=== PATIENT | female | born 1950 | race Caucasian/White ===

== ENCOUNTER 2022-11-20 11:45 | Emergency (ER) | payer OTHER ==
--- OUTSIDE RECORDS SUMMARY | 2022-11-20 11:47 | XMS REPORT | Continuity of Care Document ---
:1950 Author Organization [facility] t Address [address] [place] [address] Care Team Providers Name Role Phone JULIA Attending Clinician Unavailable Joao Horn Attending Clinician JULIA Admitting Clinician Unavailable Payers Payer Name Policy Type Policy Number Effective Date Expiration Date [facility] k[facility] [id number] 2019 (MEDICARE 00:00:00 REPLACEMENT/ADVANT AGE - HMO) Problems Condition Condition Condition Status Onset Resolution Last Treating Co mments Source Name Details Category Date Date Treatment Clinician Date Headache Headache Problem Active 2019-12-22 Memoria (finding) (finding) 22:47:49 l Active [place] Problem 12/22/2019 [facility] Hypertensi Hypertens Problem Active 2019-12-22 Memoria ve fito 22:47:49 l disorder, disorder, Herm chantell systemic systemic arterial arterial (disorder) (disorder) Active Problem 12/22/2019 [facility] Memory Memory Problem Active 2019-12-22 Ayaan donna impairment impairment 22:47:49 l (finding) (finding) Herm chantell Active Problem 12/22/2019 [facility] Morbid Morbid Problem Active 2019-12-22 Mem oria obesity obesity 22:47:49 l (disorder) (disorder) He rmann Active Problem 12/22/2019 [facility] Trigeminal Trigemina Problem Active 2019-12-22 Memoria neuralgia l 22:47:49 l (disorder) neuralgia Her guy (disorder) Active Problem 12/22/2019 [facility] Ataxia Ataxia Problem Active 2019-12-22 Ayaan donna (finding) (finding) 22:47:49 l Active [facility] Problem 12/22/2019 [facility] Hyperlipid Problem Active 2019-12-22 M emoria emia Hyperlipid 22:47:49 l (disorder) emia Jamaal n (disorder) Active Problem 12/22/2019 [facility] Myoclonus Myoclonus Problem Active 2019-12-22 Memoria (finding) (finding) 22:47:49 l Active [place] Problem 12/22/2019 [facility] Allergies, Adverse Reactions, Alerts Allergy Allergy Status Severity Reaction(s) Onset Inactive Treating Comm ents Source Name Type Date Date Clinician codeine codeine Active Memoria sulfate sulfate abdullahi Lock Latex Latex Active Memoria l Ashvin Social History Smoking Status Start Date Stop Date Source Social History 2019-09-27 16:03:38 2019-09-27 16:03:38 [facility] Medications Ordered Filled Start Stop Current Ordering Indication Dosage Frequency Signature Comments Components Source Medication Medication Date Date Medication? Clinician (SIG) Name Name Candiceazepi 2017-11 Yes 200 mg = 1 Memoria ne 200 mg 0-26 tab, PO, l oral tablet 15:29: TID, # 270 Mclean 09 tab, 2 Refill(s), Pharmacy: [facility] carBAMazepi 2017-11 Yes 200 mg = 1 Memoria ne 200 mg 0-26 tab, PO, l oral tablet 15:29: TID, # 270 Ashvin 09 tab, 2 Refill(s), Pharmacy: [facility] baclofen 2017-11 Yes 10 mg = 1 M emoria mg oral 0-26 tab, PO, l tablet 15:29: Bedtime, # Leeanne nn 00 90 tab, 3 Refill(s), Pharmacy: [facility] baclofen 2017-11 Yes 10 mg = 1 M emoria mg oral 0-26 tab, PO, l tablet 15:29: Bedtime, # Leeanne nn 00 90 tab, 3 Refill(s), Pharmacy: [facility] Vital Signs Vital Name Observation Time Observation Value Comments Source Systolic (mm Hg) 2019-09-27 16:03:00 Ayaan Lock Diastolic (mm Hg) 2019-09-27 16:03:00 [facility] peterson Lock Heart Rate 2019-09-27 16:03:00 [facility] Respitory Rate 2019-09-27 16:03:00 Adelita Tucker Height 2019-09-27 16:03:00 157.48 cm [facility] Weight 2019-09-27 16:03:00 [facility] BMI Calculated 2019-09-27 16:03:00 Memori al [facility]clean Systolic (mm Hg) 2019-09-12 15:11:00 Ayaan rial [place]clean Diastolic (mm Hg) 2019-09-12 15:11:00 Mem orial [facility] Heart Rate 2019-09-12 15:11:00 [facility] Respitory Rate 2019-09-12 15:11:00 Memori al [place] Height 2019-09-12 15:11:00 157.48 cm [facility] Weight 2019-09-12 15:11:00 [facility] BMI Calculated 2019-09-12 15:11:00 Memori al [place] BMI Calculated 2019-06-14 14:46:00 Memori al [place] Weight 2019-06-14 14:46:00 [facility] Height 2019-06-14 14:46:00 157.48 cm [facility] Respitory Rate 2019-06-14 14:46:00 Memori al [place] Heart Rate 2019-06-14 14:46:00 [facility] Systolic (mm Hg) 2019-06-14 14:46:00 Ayaan rial Ashvin Diastolic (mm Hg) 2019-06-14 14:46:00 Mem orial [place] Systolic (mm Hg) 2019-05-03 19:01:00 Ayaan rial Ash[place] Diastolic (mm Hg) 2019-05-03 19:01:00 Mem orial [place] Weight 2018-11-02 16:43:00 [facility] BMI Calculated 2018-11-02 16:43:00 Memori al [place] Height 2018-11-02 16:43:00 157.48 cm [facility] Heart Rate 2018-11-02 16:43:00 [facility] Systolic (mm Hg) 2018-11-02 16:43:00 Ayaan rial [place]clean Diastolic (mm Hg) 2018-11-02 16:43:00 Mem orial [place] Height 2018-09-21 14:59:00 157.48 cm [facility] Weight 2018-09-21 14:59:00 [facility] BMI Calculated 2018-09-21 14:59:00 Memori al [place] Heart Rate 2018-09-21 14:59:00 [facility] Systolic (mm Hg) 2018-09-21 14:59:00 Ayaan rial Mclean Diastolic (mm Hg) 2018-09-21 14:59:00 Mem orial [place] BMI Calculated 2018-08-30 16:17:00 Memkailash Evansann Weight 2018-08-30 16:17:00 [facility] Height 2018-08-30 16:17:00 157.48 cm [facility] Ashvin Heart Rate 2018-08-30 16:17:00 [facility] Systolic (mm Hg) 2018-08-30 16:17:00 Ayaan seth Mclean Diastolic (mm Hg) 2018-08-30 16:17:00 Mem orial [place] Procedures This patient has no known procedures. Encounters Start End Encounter Admission Attending Care Care Encounter Source Date/Time Date/Time Type Type Clinicians Facility Department ID 2021-09-20 2021-09-20 Outpatient ERICKSON_R [facility] [id number] [place] 08:47:00 08:47:00 [facility] 2019-12-20 2019-12-20 Ambulatory nullFlavo MNA [id number] Memoria 20:30:00 20:30:00 Pre-Reg r Neurology 07 l [place] 2019-12-20 2019-12-20 Ambulatory nullFlavo MNA [id number] Memoria 20:30:00 20:30:00 Pre-Reg r Neurology 07 l [place] Ashvin 2019-12-20 2019-12-20 Outpatient MHIE MHIE [id number] Memoria 14:30:00 14:30:00 07 l [place] 2019-12-20 2019-12-20 Outpatient TRUMAN Horn EDIESCHARGENIS [id number] 14:30:00 14:30:00 Joao Matias 2019-10-31 2019-10-31 Ambulatory nullFlavo MNA [id number] Memoria 17:00:00 17:00:00 Pre-Reg r Neurology 10 l Zenaida Lock 2019-10-31 2019-10-31 Ambulatory nullFlavo MNA [id number] Memoria 17:00:00 17:00:00 Pre-Reg r Neurology 10 l Zenaida Lock 2019-10-31 2019-10-31 Outpatient MHIE MHIE [id number] Memoria 11:00:00 11:00:00 10 abdullahi Lock 2019-10-31 2019-10-31 Outpatient ANA LILIA HornSCHARGENIS MISCHER [id number] 11:00:00 11:00:00 Joao 10 Florencio 2019-09-27 2019-09-28 Outpatient nullFlavo MNA [id number] Memoria 16:45:00 04:59:59 r Neurology 09 abdullahi Lock 2019-09-27 2019-09-28 Outpatient nullFlavo MNA [id number] Memoria 16:45:00 04:59:59 r Neurology 09 abdullahi Lock 2019-09-27 2019-09-27 [facility] [id number] 11:45:00 23:59:59 Joao Lauri Matias 2019-09-27 2019-09-27 Outpatient MHIE MHIE [id number] Memoria 11:45:00 11:45:00 09 abdullahi Lock 2019-09-12 2019-09-13 Outpatient nullFlavo MNA [id number] Memoria 15:00:00 04:59:59 r Neurology 08 abdullahi Lock 2019-09-12 2019-09-13 Outpatient nullFlavo MNA [id number] Memoria 15:00:00 04:59:59 r Neurology 08 abdullahi Lock 2019-09-12 2019-09-12 [facility] [id number] 10:00:00 23:59:59 Joao Javier Matias 2019-09-12 2019-09-12 Outpatient MHIE MHIE [id number] Memoria 10:00:00 10:00:00 Javier Lock 2019-06-14 2019-06-15 Outpatient nullFlavo MNA [id number] Memoria 14:45:00 04:59:59 r Neurology 06 abdullahi Lock 2019-06-14 2019-06-15 Outpatient nullFlavo MNA [id number] Memoria 14:45:00 04:59:59 r Neurology 06 abdullahi Lock 2019-06-14 2019-06-14 Outpatient ANA LILIA HornSCHER MISCHER [id number] 09:45:00 23:59:59 Joaoleo Matias 2019-06-14 2019-06-14 Outpatient MHIE MHIE [id number] Memoria 09:45:00 09:45:00 06 abdullahi Lock 2019-05-03 2019-05-04 Outpatient nullFlavo MNA [id number] Memoria 19:00:00 04:59:59 r Neurology 05 l Zeniada Lock 2019-05-03 2019-05-04 Outpatient nullFlavo MNA [id number] Memoria 19:00:00 04:59:59 r Neurology 05 l Zenaida Lock 2019-05-03 2019-05-03 [id number] 14:00:00 23:59:59 Joao Mikaela Matias 2019-05-03 2019-05-03 Outpatient MHIE MHIE [id number] Memoria 14:00:00 14:00:00 Mikaela Lock 2019-01-04 2019-01-04 Ambulatory nullFlavo MNA [id number] Memoria 20:45:00 20:45:00 Pre-Reg r Neurology 02 l Zenaida Lock 2019-01-04 2019-01-04 Ambulatory nullFlavo MNA [id number] Memoria 20:45:00 20:45:00 Pre-Reg r Neurology 02 l Zenaida Lock 2019-01-04 2019-01-04 Outpatient MHIE IE [id number] Memoria 14:45:00 14:45:00 Jessica Lock 2019-01-04 2019-01-04 [facility] [id number] 14:45:00 14:45:00 Joao Matias 2018-12-04 2018-12-06 Outside nullFlavo MNA [id number] Memoria 20:42:00 05:59:59 Medical r Neurology 00 l Michelle Lock 2018-12-04 2018-12-06 Outside nullFlavo MNA [id number] Memoria 20:42:00 05:59:59 Medical r Neurology 00 l Michelle Lock 2018-12-04 2018-12-05 Outpatient MISCHER MISCHER [id number] 14:42:00 23:59:59 00 2018-11-02 2018-11-03 Outpatient nullFlavo MNA [id number] Memoria 16:30:00 05:59:59 r Neurology 04 l Zenaida Lock 2018-11-02 2018-11-03 Outpatient nullFlavo MNA [id number] Memoria 16:30:00 05:59:59 r Neurology 04 l Zenaida Lock 2018-11-02 2018-11-02 Outpatient Justina MHMISCHER MHMISCHER [id number] 10:30:00 23:59:59 Joao 04 Florencio 2018-11-02 2018-11-02 Outpatient MHIE MHIE [id number] Memoria 10:30:00 10:30:00 04 abdullahi Lock 2018-09-21 2018-09-22 Outpatient nullFlavo MNA [id number] Memoria 15:00:00 04:59:59 r Neurology 03 l Zenaida Lock 2018-09-21 2018-09-22 Outpatient nullFlavo MNA [id number] Memoria 15:00:00 04:59:59 r Neurology 03 l Zenaida Lock 2018-09-21 2018-09-21 Outpatient Justina MHMISCHER MHMISCHER [id number] 10:00:00 23:59:59 Joao 03 Florencio 2018-09-21 2018-09-21 Outpatient MHIE MHIE [id number] Memoria 10:00:00 10:00:00 03 abdullahi Lock 2018-08-30 2018-08-31 Outpatient nullFlavo MNA [id number] Memoria 16:15:00 04:59:59 r Neurology 01 abdullahi Lock 2018-08-30 2018-08-31 Outpatient nullFlavo MNA [id number] Memoria 16:15:00 04:59:59 r Neurology 01 abdullahi Lock 2018-08-30 2018-08-30 Outpatient Justina, MHMISCHER MHMISCHER [id number] 11:15:00 23:59:59 Joao 01 Florencio 2018-08-30 2018-08-30 Outpatient MHIE MHIE [id number] Memoria 11:15:00 11:15:00 01 abdullahi Lock 2018-07-19 2018-07-19 Outpatient MHIE MHIE [id number] Memoria 11:00:00 11:00:00 00 abdullahi Lock 2018-07-19 2018-07-19 Outpatient MHIE MHIE [id number] Memoria 11:00:00 11:00:00 00 abdullahi Lock Results This patient has no known results.
[2022-11-20] MEDS ORDERED: DOXYCYCLINE 100 MG CAP PO ONE (13:06)
[2022-11-20] MEDS ORDERED: TDAP (DIPHTH,PERTUSS(ACELL),TET VAC) 0.5 ML VIAL IMVAC ONE (13:07)
--- NOTE | 2022-11-20 13:13 | EDPHYS ---
Physician Documentation [facility] Name: Andreea Pugh Age: 72 yrs Sex: Female : 1950 Arrival Date: 11/20/2022 Time: 11:46 Bed 6 Private MD: Mike Do ED Physician Geremias Samano HPI: 11/20 13:04 This 72 yrs old Female presents to ER via Ambulatory with complaints of Hand heriberto Swelling. 13:04 This 72 yrs old Female presents to ER via Ambulatory with complaints of Hand heriberto Swelling. 13:04 The patient or guardian reports decreased range of motion, pain, swelling. The heriberto complaints affect the right hand diffusely. Context: The problem was sustained at home, resulted from cat bites. Onset: The symptoms/episode began/occurred 3 day(s) ago. Modifying factors: The symptoms are alleviated by holding still, the symptoms are aggravated by movement. Associated signs and symptoms: The patient has no apparent associated signs or symptoms. Severity of symptoms: At their worst the symptoms were moderate, in the emergency department the symptoms are unchanged. The patient has not experienced similar symptoms in the past. Historical: - Allergies: 12:03 Codeine; aa5 - PMHx: 12:03 Hypertension; aa5 - Immunization history:: Adult Immunizations unknown. - Social history:: Smoking status: Patient denies any tobacco usage or history of. - Family history:: not pertinent. ROS: 13:04 Constitutional: Negative for fever, chills, and weight loss, Eyes: Negative for injury, heriberto pain, redness, and discharge, ENT: Negative for injury, pain, and discharge, Neck: Negative for injury, pain, and swelling, Cardiovascular: Negative for chest pain, palpitations, and edema, Respiratory: Negative for shortness of breath, cough, wheezing, and pleuritic chest pain, Abdomen/GI: Negative for abdominal pain, nausea, vomiting, diarrhea, and constipation, Back: Negative for injury and pain, : Negative for injury, bleeding, discharge, and swelling, Skin: Negative for injury, rash, and discoloration, Neuro: Negative for headache, weakness, numbness, tingling, and seizure, Psych: Negative for depression, anxiety, suicide ideation, homicidal ideation, and hallucinations, Allergy/Immunology: Negative for hives, rash, and allergies, Endocrine: Negative for neck swelling, polydipsia, polyuria, polyphagia, and marked weight changes, Hematologic/Lymphatic: Negative for swollen nodes, abnormal bleeding, and unusual bruising. 13:04 MS/extremity: Positive for decreased range of motion, erythema, pain, swelling, tenderness, of the dorsal aspect of right forearm, right wrist, right hand and palmar aspect of right forearm. Exam: 13:04 Constitutional: This is a well developed, well nourished patient who is awake, alert, heriberto and in no acute distress. Head/Face: Normocephalic, atraumatic. Eyes: Pupils equal round and reactive to light, extra-ocular motions intact. Lids and lashes normal. Conjunctiva and sclera are non-icteric and not injected. Cornea within normal limits. Periorbital areas with no swelling, redness, or edema. ENT: Nares patent. No nasal discharge, no septal abnormalities noted. Tympanic membranes are normal and external auditory canals are clear. Oropharynx with no redness, swelling, or masses, exudates, or evidence of obstruction, uvula midline. Mucous membranes moist. Neck: Trachea midline, no thyromegaly or masses palpated, and no cervical lymphadenopathy. Supple, full range of motion without nuchal rigidity, or vertebral point tenderness. No Meningismus. Chest/axilla: Normal chest wall appearance and motion. Nontender with no deformity. No lesions are appreciated. Cardiovascular: Regular rate and rhythm with a normal S1 and S2. No gallops, murmurs, or rubs. Normal PMI, no JVD. No pulse deficits. Respiratory: Lungs have equal breath sounds bilaterally, clear to auscultation and percussion. No rales, rhonchi or wheezes noted. No increased work of breathing, no retractions or nasal flaring. Abdomen/GI: Soft, non-tender, with normal bowel sounds. No distension or tympany. No guarding or rebound. No evidence of tenderness throughout. Back: No spinal tenderness. No costovertebral tenderness. Full range of motion. Neuro: Awake and alert, GCS 15, oriented to person, place, time, and situation. Cranial nerves II-XII grossly intact. Motor strength 5/5 in all extremities. Sensory grossly intact. Cerebellar exam normal. Normal gait. Psych: Awake, alert, with orientation to person, place and time. Behavior, mood, and affect are within normal limits. 13:04 Skin: cellulitis, that is mild, induration, that is mild is noted, injury, puncture(s), that are deep, of the dorsal aspect of right forearm, right wrist, right hand and palmar aspect of right forearm. Vital Signs: 11:50 BP 141 / 82; Pulse 66; Resp 16 S; Temp 98.3(O); Pulse Ox 99% on R/A; Weight 72.57 kg aa5 (R); Height 5 ft. 3 in. (160.02 cm) (R); 11:50 Body Mass Index 28.34 (72.57 kg, 160.02 cm) aa5 MDM: 12:00 Patient medically screened. heriberto 13:09 Differential diagnosis: contusion, tendonitis. Data reviewed: vital signs, nurses heriberto notes. Data interpreted: school lunch monitor: not applicable for this patient encounter. rate is 66 beats/min, rhythm is regular, Pulse oximetry: on room air is 99 %. Test interpretation: by ED physician or midlevel provider: plain radiologic studies. Counseling: I had a detailed discussion with the patient and/or guardian regarding: the historical points, exam findings, and any diagnostic results supporting the discharge/admit diagnosis, radiology results, the need for outpatient follow up, for definitive care, a general surgeon. 11/20 12:51 Order name: Hand Right 3 View XRAY [facility] 11/20 12:51 Order name: Forearm Right XRAY heriberto Administered Medications: 13:09 Drug: Tetanus Toxoid,Adsorbed 0.5 ml {Funding Analyst: [employer] ([employer] Exp: bp 08/20/2023. Lot #: [id number]. } Route: IM; Site: right deltoid; 14:12 Follow up: Response: No adverse reaction bp 13:10 Drug: Clindamycin 300 mg Route: PO; bp 14:12 Follow up: Response: No adverse reaction bp 13:10 Not Given (MED UNAVAILABLEe): Clindamycin 600 mg IM once bp 13:10 Drug: Doxycycline 200 mg Route: PO; bp 14:12 Follow up: Response: No adverse reaction bp Disposition Summary: 11/20/22 13:12 Discharge Ordered Location: Home heriberto Problem: new heriberto Symptoms: have improved heriberto Condition: Stable heriberto Diagnosis - Bitten by cat heriberto - Cellulitis and acute lymphangitis of other parts of limb - right hand / forearm [facility] Followup: [facility] - With: Mike Do DO - When: 2 - 3 days - Reason: Recheck today's complaints, Continuance of care, Re-evaluation by your physician Followup: heriberto - With: Michael Thompson MD - When: 2 - 3 days - Reason: Recheck today's complaints, Re-evaluation by your physician Discharge Instructions: - Discharge Summary Sheet heriberto - Animal Bite, Adult, [id number] [facility] - Animal Bite, Adult heriberto - Cellulitis, Adult heriberto - Cellulitis, Adult, [id number] [facility] Forms: - Medication Reconciliation Form [facility] - Thank You Letter [facility] - Antibiotic Education [facility] - Prescription Opioid Use [facility] Prescriptions: - Clindamycin HCl 300 mg Oral Capsule - take 1 capsule by ORAL route every 6 hours for 10 days; 40 capsule; Refills: 0, [facility] Product Selection Permitted - Doxycycline Hyclate 100 mg Oral Tablet - take 1 tablet by ORAL route every 12 hours; 20 tablet; Refills: 0, Product [facility] Selection Permitted - Tramadol 50 mg Oral Tablet - take 2 tablet by ORAL route every 8 hours as needed; 24 tablet; Refills: 0, [facility] Product Selection Permitted Signatures: Dispatcher [employer] Geremias Bryant MD MD cha Calderon, Audri, RN RN aa5 Rios Toth RN RN bp
--- NOTE | 2022-11-20 13:13 | ER ---
Nurse's Notes [facility] Name: Andreea Pugh Age: 72 yrs Sex: Female : 1950 Arrival Date: 11/20/2022 Time: 11:46 Bed 6 Private MD: Mike Do Diagnosis: Bitten by cat;Cellulitis and acute lymphangitis of other parts of limb-right hand / forearm Presentation: 11/20 11:50 Chief complaint: Patient states: cat bite 2-3 days ago, now has right hand swelling and aa5 redness. 11:50 Coronavirus screen: At this time, the client does not indicate any symptoms associated aa5 with coronavirus-19. Ebola Screen: Patient denies travel to an Ebola-affected area in the 21 days before illness onset. Initial Sepsis Screen: Does the patient meet any 2 criteria? No. Patient's initial sepsis screen is negative. Does the patient have a suspected source of infection? Yes:. Risk Assessment: Do you want to hurt yourself or someone else? Patient reports no desire to harm self or others. Onset of symptoms was October 2022. 11:50 Method Of Arrival: Ambulatory aa5 11:50 Acuity: RAGHU 3 aa5 Triage Assessment: 12:00 General: Appears in no apparent distress. comfortable, Behavior is calm, cooperative, bp appropriate for age. Pain: Complains of pain in right hand. EENT: No deficits noted. Neuro: No deficits noted. Cardiovascular: No deficits noted. Respiratory: No deficits noted. GI: No signs and/or symptoms were reported involving the gastrointestinal system. : No signs and/or symptoms were reported regarding the genitourinary system. Derm: No deficits noted. Musculoskeletal: Swelling present in right hand. Historical: - Allergies: 12:03 Codeine; aa5 - PMHx: 12:03 Hypertension; aa5 - Immunization history:: Adult Immunizations unknown. - Social history:: Smoking status: Patient denies any tobacco usage or history of. - Family history:: not pertinent. Screenin:12 [facility] ED Fall Risk Assessment (Adult) History of falling in the last 3 months, bp including since admission No falls in past 3 months (0 pts). Abuse screen: Denies threats or abuse. Denies injuries from another. Nutritional screening: No deficits noted. Tuberculosis screening: No symptoms or risk factors identified. Assessment: 12:10 Reassessment: Cat bite reported to [facility] Department . aa5 14:12 Reassessment: PT DC HOME AMBULATORY. bp Vital Signs: 11:50 BP 141 / 82; Pulse 66; Resp 16 S; Temp 98.3(O); Pulse Ox 99% on R/A; Weight 72.57 kg aa5 (R); Height 5 ft. 3 in. (160.02 cm) (R); 11:50 Body Mass Index 28.34 (72.57 kg, 160.02 cm) aa5 ED Course: 11:46 Patient arrived in ED. as 11:47 Mike Do DO is Private Physician. as 11:50 Arm band placed on Patient placed in an exam room, on a stretcher. aa5 12:00 Geremias Samano MD is Attending Physician. heriberto 12:00 Rios Toth, JANETH is Primary Nurse. bp 12:03 Triage completed. aa5 13:10 Mike Do DO is Referral Physician. heriberto 13:10 Michael Thompson MD is Referral Physician. heriberto 13:38 Hand Right 3 View XRAY In Process Unspecified. EDMS 13:38 Forearm Right XRAY In Process Unspecified. EDMS 14:12 Patient has correct armband on for positive identification. Bed in low position. Call bp light in reach. Side rails up X2. Adult w/ patient. 14:12 No provider procedures requiring assistance completed. Patient did not have IV access bp during this emergency room visit. Administered Medications: 13:09 Drug: Tetanus Toxoid,Adsorbed 0.5 ml {Dynamometer Tester Engine: [employer] ([employer]). Exp: bp 08/20/2023. Lot #: [id number]. } Route: IM; Site: right deltoid; 14:12 Follow up: Response: No adverse reaction bp 13:10 Drug: Clindamycin 300 mg Route: PO; bp 14:12 Follow up: Response: No adverse reaction bp 13:10 Not Given (MED UNAVAILABLEe): Clindamycin 600 mg IM once bp 13:10 Drug: Doxycycline 200 mg Route: PO; bp 14:12 Follow up: Response: No adverse reaction bp Medication: 14:12 VIS not applicable for this client. bp Outcome: 13:12 Discharge ordered by . heriberto 14:12 Discharged to home ambulatory. bp 14:12 Condition: stable 14:12 Discharge instructions given to patient, Instructed on discharge instructions, follow up and referral plans. medication usage, Demonstrated understanding of instructions, follow-up care, medications, Prescriptions given X 3. 14:14 Patient left the ED. bp Signatures: Dispatcher [employer] EDMS Geremias Samano MD MD cha Martinez, Amelia as Calderon, Audri, RN RN aa5 Rios Toth RN RN bp Corrections: (The following items were deleted from the chart) 14:14 14:12 Discharge instructions given to patient, Instructed on discharge instructions, bp follow up and referral plans. medication usage, Demonstrated understanding of instructions, follow-up care, medications, Prescriptions given X 1, bp
--- NOTE | 2022-11-20 13:46 | RAD REPORT ---
EXAM DESCRIPTION: RAD - Forearm Right - 11/20/2022 1:36 pm CLINICAL HISTORY: PAIN COMPARISON: Forearm Right dated 03/27/2019 FINDINGS: Moderate soft tissue swelling along the dorsum of the hand and wrist. No fracture, foreign body or subcutaneous gas.
--- NOTE | 2022-11-20 13:47 | RAD REPORT ---
EXAM DESCRIPTION: RAD - Hand Right 3 View - 11/20/2022 1:36 pm CLINICAL HISTORY: PAIN COMPARISON: No comparisons FINDINGS: Moderate soft tissue swelling is seen along the dorsum of the hand and wrist. No radiopaqu e foreign body or soft tissue gas seen.
[2022-11-20 14:18] VITALS: BP 141/82; TEMP 98.3; O2SAT 99
== END 2022-11-20 14:14 | disposition home or self-care (01) ==
LOC: ER 11:45
DX: L03.113 Cellulitis of right upper limb (principal); L03.123 Acute lymphangitis of right upper limb; W55.01XA Bitten by cat, initial encounter; I10 Essential (primary) hypertension; Z88.5 Allergy status to narcotic agent; Z23 Encounter for immunization
CPT/HCPCS: 90471; 99283

== ENCOUNTER 2023-07-17 11:13 | Emergency (ER) | payer OTHER ==
--- OUTSIDE RECORDS SUMMARY | 2023-07-17 11:17 | XMS REPORT | Continuity of Care Document ---
:1950 Author Organization [facility] t Address [address] [place] [address] [place] [id number] Care Team Providers Name Role Phone TIFFANY EVERETT Attending Clinician Unavailable LAI GARCIA Attending Clinician Unavailable Joao Horn Attending Clinician JULIA Attending Clinician Unavailable JULIA Admitting Clinician Unavailable Payers Payer Name Policy Type Policy Number Effective Date Expiration Date S doyle [employer] 16 [id number] 2023 HMO-POS 00:00:00 [facility] [id number] 2019 (MEDICARE 00:00:00 REPLACEMENT/ADVANT AGE - HMO) Problems Condition Condition Condition Status Onset Resolution Last Treating Co mments Source Name Details Category Date Date Treatment Clinician Date Hypertensi Hypertensi Disease Active Kai kitchen on on 06-28 Seybold 00:00: - 00 Externa l Alzheimer Alzheimer Disease Active Overview: Deya disease disease 06-28 Formattin Seybo ld 00:00: g of this note Externa might be l different from the original. Care Everywher e Records, see Dr. Horn Hiatal Hiatal Disease Active Deya hernia hernia 06-28 Seybold with GERD with GERD 00:00: - 00 Externa l Hyperlipid Hyperlipid Disease Active Kai kitchen emia emia 06-28 Seybold 00:00: - 00 Externa l Headache Headache Problem Active 2023-05-12 Memoria (finding) (finding) 02:16:57 l Active [place] Problem 05/12/2023 [facility] Neuro,Ayaan rial [facility] Memory Memory Problem Active 2023-05-12 Ayaan donna impairment impairment 02:16:57 l (finding) (finding) Herm chantell Active Problem 05/12/2023 [facility] Morbid Morbid Problem Active 2023-05-12 Ayaan [facility] obesity obesity 02:16:57 l (disorder) (disorder) Bari dnageloann Active Problem 05/12/2023 [facility] Trigeminal Trigemina Problem Active 2023-05-12 Memoria neuralgia l 02:16:57 l (disorder) neuralgia Her guy (disorder) Active Problem 05/12/2023 [facility] Ataxia Ataxia Problem Active 2023-05-12 Mem oria (finding) (finding) 02:16:57 l Active [place] Problem 05/12/2023 [facility] Myoclonus Myoclonus Problem Active 2023-05-12 Memoria (finding) (finding) 02:16:57 l Active [place] Problem 05/12/2023 [facility] Impaired Impaired Problem Active 2023-05-12 Memoria cognition cognition 02:16:57 l (finding) (finding) Herm chantell Active Problem 05/12/2023 [facility] [place] Allergies, Adverse Reactions, Alerts Allergy Allergy Status Severity Reaction(s) Onset Inactive Treating Comm ents Source Name Type Date Date Clinician Penicill Propensi Active Rash Deya ins ty to 3-30 Seybold adverse 00:00: - reaction 00 Externa s l Codeine Propensi Active Other Other Deya ty to 807 reaction( Seybold adverse 00:00: s): - reaction 00 Unknown - Exter na s See l comments Latex Propensi Active Rash Deya ty to 807 Seybold adverse 00:00: - reaction 00 Externa s l codeine codeine Active Memoria sulfate sulfate l [place] Latex Latex Active Memoria l [place] penicill penicill Active Memori a in in l [place] Social History Social Habit Start Date Stop Date Quantity Comments Source Gender identity Deya rey - External Sexual orientation Deya Driver - External History of tobacco Cigarette Smoker Deya Driver use - External Cigarettes smoked 2023-06-28 2023-06-28 Deya Driver current (pack per 00:00:00 00:00:00 - Exter nal day) - Reported Cigarette 2023-06-28 2023-06-28 Deya Driver pack-years 00:00:00 00:00:00 - External Tobacco use and 2023-06-28 2023-06-28 Smokeless tobacco Jaspal divinelisa Neisha exposure 00:00:00 00:00:00 non-user - External Alcohol intake 2023-06-28 2023-06-28 Ex-drinker Deyaveda Mccollum wily 00:00:00 00:00:00 (finding) - External Education 2023-06-28 2023-06-28 16 Deya Seshayosvaldo 00:00:00 00:00:00 - External Alcohol Comment 2023-06-28 2023-06-28 quit heavy Deyaveda rey 00:00:00 00:00:00 alcohol in 1982 - Externa l History of Social 2023-06-27 2023-06-27 Deyaveda Driver function 00:00:00 00:00:00 - External Sex [birth year] At [birth year] Deya rey 00:00:00 00:00:00 - External Smoking Status Start Date Stop Date Source Tobacco smoking status 2023-05-09 20:11:48 2023-05-09 20:11:48 M minoo Lock Medications Ordered Filled Start Stop Current Ordering Indication Dosage Frequency Signature Comments Components Source Medication Medication Date Date Medication? Clinician (SIG) Name Name diphenhydrA 2022- No Take by Jaspal ku MINE HCl 06-28 mouth Seybold (BENADRYL 11:41: 00:00 - ALLERGY OR) 13 :00 Externa l Omeprazole 2022- No 40mg Take 1 Tierra ey 40 MG oral 06-28 capsule Seybo ld Delayed 11:40: 00:00 (40 mg - Release 50 :00 total) by Externa Capsule mouth 2 l times daily Pantoprazol 2022- No 20mg Take 1 Didier mccollum e Sodium 20 06-28 tablet (20 S eybold MG oral 11:40: 00:00 mg total) - Tablet 44 :00 by mouth Externa Delayed daily l Response Benzonatate 3-0 Yes [id number] 100mg [id number] Take 1 Deya (Tessalon 06-28 [id number] capsule S madhu Reveles) 100 00:00: 3D (100 mg - MG oral 00 total) by Externa Capsule mouth 3 l times daily as needed for cough Azithromyci 3-0 2023- Yes [id number] Take 2 Deya n 250 MG 06-28- tablets by Seyb old oral Tablet 00:00: 04:59 mouth on - 00 :00 day 1 then Externa 1 tablet l by mouth daily for 4 days thereafter . Atorvastati 2022-0 Yes 20mg Take 1 Tierra ey n Calcium - tablet (20 Seyb old 20 MG oral 14:12: mg total) - Tablet 15 by mouth Externa daily l donepezil 3-0 Yes 10 mg = 1 Mem oria 10 mg oral 6-13 tab, PO, l tablet 20:37: Bedtime, # Leeanne nn 00 30 tab, 3 Refill(s), Pharmacy: [facility], 154.94, cm, 05/09/23 15:21:00 CDT, Height, 81.818, kg, 05/09/23 15:21:00 CDT, Weight donepezil 2022-0 Yes 10 mg = 1 Mem oria 10 mg oral 6-13 tab, PO, l tablet 20:37: Bedtime, # Leeanne nn 00 30 tab, 3 Refill(s), Pharmacy: [facility], 154.94, cm, 05/09/23 15:21:00 CDT, Height, 81.818, kg, 05/09/23 15:21:00 CDT, Weight donepezil 3-0 Yes 10 mg = 1 Mem oria 10 mg oral 6-13 tab, PO, l tablet 20:37: Bedtime, # Leaenne nn 00 30 tab, 3 Refill(s), Pharmacy: [facility], 154.94, cm, 05/09/23 15:21:00 CDT, Height, 81.818, kg, 05/09/23 15:21:00 CDT, Weight donepezil 2022-0 Yes 10 mg = 1 Mem oria 10 mg oral 6-13 tab, PO, l tablet 20:37: Bedtime, # Leeanne nn 00 30 tab, 3 Refill(s), Pharmacy: [facility], 154.94, cm, 05/09/23 15:21:00 CDT, Height, 81.818, kg, 05/09/23 15:21:00 CDT, Weight donepezil 3-0 Yes 10 mg = 1 Mem oria 10 mg oral 6-13 tab, PO, l tablet 20:37: Bedtime, # Leeanne nn 00 30 tab, 3 Refill(s), Pharmacy: [facility], 154.94, cm, 05/09/23 15:21:00 CDT, Height, 81.818, kg, 05/09/23 15:21:00 CDT, Weight DONEPEZIL 2022-0 Yes 10mg Take 1 Deya HYDROCHLORI 6-13 tablet (10 Se ybold DE 10 MG 00:00: mg total) - oral Tablet 00 by mouth Exte rna every l night at bedtime Aricept 5 2022-0 Yes 5 mg = 1 Ayaan donna mg oral 4-13 tab, PO, l tablet 20:50: Bedtime, # Leeanne nn 00 30 tab, 3 Refill(s), Pharmacy: [facility], 154.94, cm, 03/09/23 15:13:00 CDT, Height, 80.909, kg, 03/09/23 15:13:00 CDT, Weight Aricept 5 2022-0 Yes 5 mg = 1 Ayaan donna mg oral 4-13 tab, PO, l tablet 20:50: Bedtime, # Leeanne nn 00 30 tab, 3 Refill(s), Pharmacy: [facility], 154.94, cm, 03/09/23 15:13:00 CDT, Height, 80.909, kg, 03/09/23 15:13:00 CDT, Weight Aricept 5 2022-0 Yes 5 mg = 1 Ayaan donna mg oral 4-13 tab, PO, l tablet 20:50: Bedtime, # Leeanne nn 00 30 tab, 3 Refill(s), Pharmacy: [facility], 154.94, cm, 03/09/23 15:13:00 CDT, Height, 80.909, kg, 03/09/23 15:13:00 CDT, Weight Aricept 5 2022-0 Yes 5 mg = 1 Ayaan donna mg oral 4-13 tab, PO, l tablet 20:50: Bedtime, # Leeanne nn 00 30 tab, 3 Refill(s), Pharmacy: [facility], 154.94, cm, 03/09/23 15:13:00 CDT, Height, 80.909, kg, 03/09/23 15:13:00 CDT, Weight Aricept 5 2022-0 Yes 5 mg = 1 Ayaan donna mg oral 4-13 tab, PO, l tablet 20:50: Bedtime, # Leeanne nn 00 30 tab, 3 Refill(s), Pharmacy: [facility], 154.94, cm, 03/09/23 15:13:00 CDT, Height, 80.909, kg, 03/09/23 15:13:00 CDT, Weight atorvastati 0 Yes 20 mg = 1 M emoria n 20 mg 3-07 tab, PO, l oral tablet 21:59: Bedtime, # [place] 00 90 tab, 1 Refill(s) DULoxetine 2022-0 Yes 0 Memoria 60 mg oral 3-07 Refill(s) l delayed 21:59: [place] release 00 capsule amLODIPine 2022-0 Yes 10 mg = 1 Me moria 10 mg oral 3-07 tab, PO, l tablet 21:59: Daily, # [place] 00 30 tab, 0 Refill(s) atorvastati 2022-0 Yes 20 mg = 1 M emoria n 20 mg 3-07 tab, PO, l oral tablet 21:59: Bedtime, # [place] 00 90 tab, 1 Refill(s) DULoxetine 2022-0 Yes 0 Memoria 60 mg oral 3-07 Refill(s) l delayed 21:59: [place] release 00 capsule amLODIPine 2022-0 Yes 10 mg = 1 Me moria 10 mg oral 3-07 tab, PO, l tablet 21:59: Daily, # [place] 00 30 tab, 0 Refill(s) atorvastati 2022-0 Yes 20 mg = 1 M emoria n 20 mg 3-07 tab, PO, l oral tablet 21:59: Bedtime, # [place] 00 90 tab, 1 Refill(s) DULoxetine 3-0 Yes 0 Memoria 60 mg oral 3-07 Refill(s) l delayed 21:59: [place] release 00 capsule amLODIPine 3-0 Yes 10 mg = 1 Me moria 10 mg oral 3-07 tab, PO, l tablet 21:59: Daily, # [place] 00 30 tab, 0 Refill(s) atorvastati 3-0 Yes 20 mg = 1 M emoria n 20 mg 3-07 tab, PO, l oral tablet 21:59: Bedtime, # [place] 00 90 tab, 1 Refill(s) DULoxetine 3-0 Yes 0 Memoria 60 mg oral 3-07 Refill(s) l delayed 21:59: [place] release 00 capsule amLODIPine 3-0 Yes 10 mg = 1 Me moria 10 mg oral 3-07 tab, PO, l tablet 21:59: Daily, # [place] 00 30 tab, 0 Refill(s) atorvastati 3-0 Yes 20 mg = 1 M emoria n 20 mg 3-07 tab, PO, l oral tablet 21:59: Bedtime, # [place] 00 90 tab, 1 Refill(s) DULoxetine 3-0 Yes 0 Memoria 60 mg oral 3-07 Refill(s) l delayed 21:59: [place] release 00 capsule amLODIPine 3-0 Yes 10 mg = 1 Me moria 10 mg oral 3-07 tab, PO, l tablet 21:59: Daily, # [place] 00 30 tab, 0 Refill(s) atorvastati 2023-0 Yes 20 mg = 1 M emoria n 20 mg 3-07 tab, PO, l oral tablet 21:59: Bedtime, # [place] 00 90 tab, 1 Refill(s) DULoxetine 3-0 Yes 0 Memoria 60 mg oral 3-07 Refill(s) l delayed 21:59: [place] release 00 capsule amLODIPine 2023-0 Yes 10 mg = 1 Me moria 10 mg oral 3-07 tab, PO, l tablet 21:59: Daily, # [place] 00 30 tab, 0 Refill(s) omeprazole 2023-0 Yes 40 mg = 1 Me moria 40 mg oral 3-07 cap, 0 l delayed 21:58: Refill(s) Leeanne nn release 00 capsule omeprazole 2022-0 Yes 40 mg = 1 Me moria 40 mg oral 3-07 cap, 0 l delayed 21:58: Refill(s) Leeanne nn release 00 capsule omeprazole 2022-0 Yes 40 mg = 1 Me moria 40 mg oral 3-07 cap, 0 l delayed 21:58: Refill(s) Leeanne nn release 00 capsule omeprazole 2022-0 Yes 40 mg = 1 Me moria 40 mg oral 3-07 cap, 0 l delayed 21:58: Refill(s) Leeanne nn release 00 capsule omeprazole 2022-0 Yes 40 mg = 1 Me moria 40 mg oral 3-07 cap, 0 l delayed 21:58: Refill(s) Leeanne nn release 00 capsule omeprazole 2022-0 Yes 40 mg = 1 Me moria 40 mg oral 3-07 cap, 0 l delayed 21:58: Refill(s) Leeanne nn release 00 capsule Amlodipine Yes 10mg Take 1 Kelse y Besylate 10 01-31 tablet (10 Se ybold MG oral 00:00: mg total) - Tablet 00 by mouth Externa daily l Duloxetine 2022- No 62mg Take 62 mg Deya HCl 60 MG 01-31 by mouth Seybo ld oral Cap DR 00:00: 00:00 daily - Particles 00 :00 Externa l Famotidine 2021-11- No 40mg Take 1 Tierra ey 40 MG oral 01-09 tablet (40 Se ybold Tablet 00:00: 00:00 mg total) - 00 :00 by mouth Externa nightly l carBAMazepi 2017-11 Yes 200 mg = 1 Memoria ne 200 mg 0-26 tab, PO, l oral tablet 15:29: TID, # 270 [place] 09 tab, 2 Refill(s), Pharmacy: [facility] carBAMazepi 2017-11 Yes 200 mg = 1 Memoria ne 200 mg 0-26 tab, PO, l oral tablet 15:29: TID, # 270 [place] 09 tab, 2 Refill(s), Pharmacy: [facility] carBAMazepi 2017-11 Yes 200 mg = 1 Memoria ne 200 mg 0-26 tab, PO, l oral tablet 15:29: TID, # 270 [place] 09 tab, 2 Refill(s), Pharmacy: [facility] 2017-11 Yes 200 mg = 1 Memoria ne 200 mg 0-26 tab, PO, l oral tablet 15:29: TID, # 270 [place] 09 tab, 2 Refill(s), Pharmacy: [facility] 2017-11 Yes 200 mg = 1 Memoria ne 200 mg 0-26 tab, PO, l oral tablet 15:29: TID, # 270 [place] 09 tab, 2 Refill(s), [facility] Yes 200 mg = 1 Memoria ne 200 mg 0-26 tab, PO, l oral tablet 15:29: TID, # 270 [place] 09 tab, 2 Refill(s), Pharmacy: [facility] 2017-11 Yes 200 mg = 1 Memoria ne 200 mg 0-26 tab, PO, l oral tablet 15:29: TID, # 270 [place] 09 tab, 2 Refill(s), Pharmacy: [facility] 2017-11 Yes 200 mg = 1 Memoria ne 200 mg 0-26 tab, PO, l oral tablet 15:29: TID, # 270 [place] 09 tab, 2 Refill(s), Pharmacy: [facility] baclofen 2017-11 Yes 10 mg = 1 M emoria mg oral 0-26 tab, PO, l tablet 15:29: Bedtime, # Leeanne nn 00 90 tab, 3 Refill(s), Pharmacy: [facility] baclofen 2017-11 Yes 10 mg = 1 M emoria mg oral 0-26 tab, PO, l tablet 15:29: Bedtime, # Leeanne nn 00 90 tab, 3 Refill(s), Pharmacy: [facility] baclofen 2017-11 Yes 10 mg = 1 M emoria mg oral 0-26 tab, PO, l tablet 15:29: Bedtime, # Leeanne nn 00 90 tab, 3 Refill(s), Pharmacy: [facility] baclofen 2017-11 Yes 10 mg = 1 M emoria mg oral 0-26 tab, PO, l tablet 15:29: Bedtime, # Leeanne nn 00 90 tab, 3 Refill(s), Pharmacy: [facility] baclofen 2017-11 Yes 10 mg = 1 M emoria mg oral 0-26 tab, PO, l tablet 15:29: Bedtime, # Leeanne nn 00 90 tab, 3 Refill(s), Pharmacy: [facility] baclofen 2017-11 Yes 10 mg = 1 M emoria mg oral 0-26 tab, PO, l tablet 15:29: Bedtime, # Leeanne nn 00 90 tab, 3 Refill(s), Pharmacy: [facility] baclofen 2017-11 Yes 10 mg = 1 M emoria mg oral 0-26 tab, PO, l tablet 15:29: Bedtime, # Leeanne nn 00 90 tab, 3 Refill(s), Pharmacy: [facility] baclofen 2017-11 Yes 10 mg = 1 M emoria mg oral 0-26 tab, PO, l tablet 15:29: Bedtime, # Leeanne nn 00 90 tab, 3 Refill(s), Pharmacy: [facility] Vital Signs Vital Name Observation Time Observation Value Comments Source Systolic blood 2023-06-28 16:28:00 133 mm[Hg] Deya Lesterold - pressure External Diastolic blood 2023-06-28 16:28:00 80 mm[Hg] Zaid Driver - pressure External Heart rate 2023-06-28 16:28:00 55 /min Deya leung - External Body temperature 2023-06-28 16:28:00 36.33 Yahaira Tierra gonzalez Seybold - External Respiratory rate 2023-06-28 16:28:00 15 /min Tierra gonzalez Seybold - External Body height 2023-06-28 16:28:00 157.5 cm Deya leung - External Body weight 2023-06-28 16:28:00 82.101 kg Deya leung - External BMI 2023-06-28 16:28:00 33.11 kg/m2 Deya leung - External Oxygen saturation in 2023-06-28 16:28:00 97 /min Deya Driver - Arterial blood by External Pulse oximetry Diastolic (mm Hg) 2023-03-09 19:56:00 Mem orial [place] Heart Rate 2023-03-09 19:56:00 [facility] [place] Height 2023-03-09 19:56:00 5 [ft_i] [facility] [place] Weight 2023-03-09 19:56:00 [facility] [place] BMI Calculated 2023-03-09 19:56:00 Memori al [place] Systolic (mm Hg) 2023-03-09 19:56:00 Ayaan rial [place] Systolic (mm Hg) 2023-01-31 21:15:00 Ayaan rial [place] Diastolic (mm Hg) 2023-01-31 21:15:00 Mem orial [place] Heart Rate 2023-01-31 21:15:00 [facility] [place] Height 2023-01-31 21:15:00 5 [ft_i] [facility] [place] Weight 2023-01-31 21:15:00 [facility] [place] BMI Calculated 2023-01-31 21:15:00 Memori al [place] Systolic (mm Hg) 2019-09-27 16:03:00 Ayaan rial [place] Diastolic (mm Hg) 2019-09-27 16:03:00 Mem orial [place] Heart Rate 2019-09-27 16:03:00 [facility] [place] Respitory Rate 2019-09-27 16:03:00 Memori al [place] Height 2019-09-27 16:03:00 157.48 cm [facility] [place] Weight 2019-09-27 16:03:00 [facility] [place] BMI Calculated 2019-09-27 16:03:00 Memori al [place] Systolic (mm Hg) 2019-09-12 15:11:00 Ayaan rial [place] Diastolic (mm Hg) 2019-09-12 15:11:00 Mem orial [place] Heart Rate 2019-09-12 15:11:00 [facility] [place] Respitory Rate 2019-09-12 15:11:00 Memori al [place] Height 2019-09-12 15:11:00 157.48 cm [facility] [place] Weight 2019-09-12 15:11:00 [facility] [place] BMI Calculated 2019-09-12 15:11:00 Memori al [place] BMI Calculated 2019-06-14 14:46:00 Memori al [place] Weight 2019-06-14 14:46:00 [facility] [place] Height 2019-06-14 14:46:00 157.48 cm [facility] [place] Respitory Rate 2019-06-14 14:46:00 Memori al [place] Heart Rate 2019-06-14 14:46:00 [facility] [place] Systolic (mm Hg) 2019-06-14 14:46:00 Ayaan rial [place] Diastolic (mm Hg) 2019-06-14 14:46:00 Mem orial [place] Systolic (mm Hg) 2019-05-03 19:01:00 Ayaan rial [place] Diastolic (mm Hg) 2019-05-03 19:01:00 Mem orial [place] Weight 2018-11-02 16:43:00 [facility] [place] BMI Calculated 2018-11-02 16:43:00 Memori al [place] Height 2018-11-02 16:43:00 157.48 cm [facility] [place] Heart Rate 2018-11-02 16:43:00 [facility] [place] Systolic (mm Hg) 2018-11-02 16:43:00 Ayaan rial [place] Diastolic (mm Hg) 2018-11-02 16:43:00 Mem orial [place] Height 2018-09-21 14:59:00 157.48 cm [facility] [place] Weight 2018-09-21 14:59:00 [facility] [place] BMI Calculated 2018-09-21 14:59:00 Memori al [place] Heart Rate 2018-09-21 14:59:00 [facility] [place] Systolic (mm Hg) 2018-09-21 14:59:00 Ayaan rial [place] Diastolic (mm Hg) 2018-09-21 14:59:00 Mem orial [place] BMI Calculated 2018-08-30 16:17:00 Memori al [place] Weight 2018-08-30 16:17:00 [facility] [place] Height 2018-08-30 16:17:00 157.48 cm [facility] [place] Heart Rate 2018-08-30 16:17:00 [facility] [place] Systolic (mm Hg) 2018-08-30 16:17:00 Ayaan rial [place] Diastolic (mm Hg) 2018-08-30 16:17:00 Mem orial [place] Procedures Procedure Date / Time Performed Performing Clinician [facility] e Bowel care<sup>1</sup> [facility] [place] Encounters Start End Encounter Admission Attending Care Care Encounter Source Date/Time Date/Time Type Type Clinicians Facility Department ID 2023-08-11 2023-08-[address] [id number] Memoria 13:45:00 13:45:00 15 l [place] 2023-08-11 2023-08-11 Outpatient MHIE MHIE [id number] Memoria 13:45:00 13:45:00 15 abdullahi Lock 2023-07-19 2023-07-19 Outpatient PREDEYA HIGGINBOTHAM [id number] Deya 14:45:00 14:45:00 TIFFANY Seybol d 2023-07-12 2023-07-12 Outpatient GARCIA, DEYA KARIMI [id number] Deya 00:00:00 00:00:00 LASUNDRA Seybo ld 2023-07-04 2023-07-04 Outpatient PREZAS, DEYA KARIMI [id number] Deya 00:00:00 00:00:00 TIFFANY Seybol d 2023-07-03 2023-07-03 Outpatient PREZAS, DEYA KARIMI [id number] Deya 00:00:00 00:00:00 TIFFANY Seybol d 2023-06-28 2023-06-28 Outpatient PREZASDEYA [id number] Deya 11:45:00 11:45:00 TIFFANY Seybol d 2023-06-13 2023-06-13 Outpatient PREZASDEYA [id number] Deya 10:45:00 10:45:00 TIFFANY Seybol d 2023-05-09 2023-05-09 Ambulatory MHIE MNA [id number] Memoria 19:30:00 19:30:00 Pre-Reg Neurology 13 l [place] Lock 2023-05-09 2023-05-09 Ambulatory MHIE MNA [id number] Memoria 19:30:00 19:30:00 Pre-Reg Neurology 13 l [place]vin 2023-05-09 2023-05-09 Outpatient MHIE MHIE [id number] Memoria 14:45:00 14:45:00 14 l [place] 2023-05-09 2023-05-09 Outpatient MHIE MHIE [id number] Memoria 14:45:00 14:45:00 14 l [place] 2023-05-09 2023-05-09 Outpatient MHIE MHIE [id number] Memoria 14:30:00 14:30:00 13 l [place] 2023-05-09 2023-05-09 Outpatient Justina MHMISCHER MHMISCHER [id number] 14:30:00 14:30:00 Joao 13 Florencio 2023-03-09 2023-03-10 Outpatient MHIE MNA [id number] Memoria 20:00:00 04:59:59 Neurology 12 l Zenaida Lock 2023-03-09 2023-03-10 Outpatient MHIE MNA [id number] Memoria 20:00:00 04:59:59 Neurology 12 l Zenaida Lock 2023-03-09 2023-03-09 Outpatient Justina, MHMISCHER MHMISCHER [id number] 15:00:00 23:59:59 Joao 12 Florencio 2023-03-09 2023-03-09 Outpatient MHIE MHIE [id number] Memoria 15:00:00 15:00:00 12 abdullahi Lock 2023-01-31 2023-02-01 Outpatient MHIE MNA [id number] Memoria 21:00:00 05:59:59 Neurology 11 l Zenaida Lock 2023-01-31 2023-02-01 Outpatient MHIE MNA [id number] Memoria 21:00:00 05:59:59 Neurology 11 l Zenaida Lock 2023-01-31 2023-01-31 Outpatient Justina, MHMISCHER MHMISCHER [id number] 15:00:00 23:59:59 Joao 11 Florencio 2023-01-31 2023-01-31 Outpatient MHIE MHIE [id number] Memoria 15:00:00 15:00:00 11 abdullahi Lock 2021-09-20 2021-09-20 Outpatient ERICKSON_R [facility] [id number] - [place] 08:47:00 08:47:00 [facility] 2019-12-20 2019-12-20 Ambulatory nullFlavo MNA [id number] Memoria 20:30:00 20:30:00 Pre-Reg r Neurology 07 l Zenaida Johnsonann 2019-12-20 2019-12-20 Ambulatory nullFlavo MNA [id number] Memoria 20:30:00 20:30:00 Pre-Reg r Neurology 07 l [place]vin 2019-12-20 2019-12-20 Outpatient MHIE MHIE [id number] Memoria 14:30:00 14:30:00 Henrietta Lock 2019-12-20 2019-12-20 [id number] 14:30:00 14:30:00 Joao Matias 2019-10-31 2019-10-31 Ambulatory nullFlavo MNA [id number] Memoria 17:00:00 17:00:00 Pre-Reg r Neurology 10 abdullahi Lock 2019-10-31 2019-10-31 Ambulatory nullFlavo MNA [id number] Memoria 17:00:00 17:00:00 Pre-Reg r Neurology 10 abdullahi Estevez [place] 2019-10-31 2019-10-31 Outpatient MHIE MHIE [id number] Memoria 11:00:00 11:00:00 Jazmyne Lock 2019-10-31 2019-10-31 [id number] 11:00:00 11:00:00 Joaoleo Matias 2019-09-27 2019-09-28 Outpatient nullFlavo MNA [id number] Memoria 16:45:00 04:59:59 r Neurology 09 abdullahi Lock 2019-09-27 2019-09-28 Outpatient nullFlavo MNA [id number] Memoria 16:45:00 04:59:59 r Neurology 09 abdullahi Estevez [place] 2019-09-27 2019-09-27 [id number] 11:45:00 23:59:59 Joao Lauri Matias 2019-09-27 2019-09-27 Outpatient MHIE MHIE [id number] Memoria 11:45:00 11:45:00 09 abdullahi Lock 2019-09-12 2019-09-13 Outpatient nullFlavo MNA [id number] Memoria 15:00:00 04:59:59 r Neurology 08 abdullahi Estevez [place] 2019-09-12 2019-09-13 Outpatient nullFlavo MNA [id number] Memoria 15:00:00 04:59:59 r Neurology 08 abdullahi Estevez [place] 2019-09-12 2019-09-12 Outpatient TRUMAN HornMISCHER [id number] 10:00:00 23:59:59 Joao 08 Florencio 2019-09-12 2019-09-12 Outpatient MHIE IE [id number] Memoria 10:00:00 10:00:00 08 abdullahi Lock 2019-06-14 2019-06-15 Outpatient nullFlavo MNA [id number] Memoria 14:45:00 04:59:59 r Neurology 06 l eZnaida [place] 2019-06-14 2019-06-15 Outpatient nullFlavo MNA [id number] Memoria 14:45:00 04:59:59 r Neurology 06 abdullahi Estevez [place] 2019-06-14 2019-06-14 [id number] 09:45:00 23:59:59 Joao Josemanuel Matias 2019-06-14 2019-06-14 Outpatient MHIE MHIE [id number] Memoria 09:45:00 09:45:00 06 abdullahi [place] 2019-05-03 2019-05-04 Outpatient nullFlavo MNA [id number] Memoria 19:00:00 04:59:59 r Neurology 05 abdullahi Estevez [place] 2019-05-03 2019-05-04 Outpatient nullFlavo MNA [id number] Memoria 19:00:00 04:59:59 r Neurology 05 abdullahi Estevez [place] 2019-05-03 2019-05-03 [id number] 14:00:00 23:59:59 Joao Mikaela Matias 2019-05-03 2019-05-03 Outpatient MHIE IE [id number] Memoria 14:00:00 14:00:00 05 abdullahi Ashvin 2019-01-04 2019-01-04 Ambulatory nullFlavo MNA [id number] Memoria 20:45:00 20:45:00 Pre-Reg r Neurology 02 abdullahi [place] 2019-01-04 2019-01-04 Ambulatory nullFlavo MNA [id number] Memoria 20:45:00 20:45:00 Pre-Reg r Neurology 02 abdullahi [place] 2019-01-04 2019-01-04 Outpatient MHIE MHIE [id number] Memoria 14:45:00 14:45:00 02 abdullahi Lock 2019-01-04 2019-01-04 Outpatient Justina MHMISCHER MHMISCHER [id number] 14:45:00 14:45:00 Joao Jessica Matias 2018-12-04 2018-12-06 Outside nullFlavo MNA [id number] Memoria 20:42:00 05:59:59 Medical r Neurology 00 l Records Zenaida Lock 2018-12-04 2018-12-06 Outside nullFlavo MNA [id number] Memoria 20:42:00 05:59:59 Medical r Neurology 00 l Records Zenaida Lock 2018-12-04 2018-12-05 Outpatient MHMISCHER MHMISCHER [id number] 14:42:00 23:59:59 00 2018-11-02 2018-11-03 Outpatient nullFlavo MNA [id number] Memoria 16:30:00 05:59:59 r Neurology 04 l Zenaida Lock 2018-11-02 2018-11-03 Outpatient nullFlavo MNA [id number] Memoria 16:30:00 05:59:59 r Neurology 04 l Zenaida Lock 2018-11-02 2018-11-02 Outpatient Justina, MHMISCHER MHMISCHER [id number] 10:30:00 23:59:59 Joao 04 Florencio 2018-11-02 2018-11-02 Outpatient MHIE MHIE [id number] Memoria 10:30:00 10:30:00 04 abdullahi Lock 2018-09-21 2018-09-22 Outpatient nullFlavo MNA [id number] Memoria 15:00:00 04:59:59 r Neurology 03 l Zenaida Ashvin 2018-09-21 2018-09-22 Outpatient nullFlavo MNA [id number] Memoria 15:00:00 04:59:59 r Neurology 03 l Zenaida Lock 2018-09-21 2018-09-21 Outpatient Justina, MHMISCHER MHMISCHER [id number] 10:00:00 23:59:59 Joao 03 Florencio 2018-09-21 2018-09-21 Outpatient MHIE MHIE [id number] Memoria 10:00:00 10:00:00 03 abdullahi Lock 2018-08-30 2018-08-31 Outpatient nullFlavo MNA [id number] Memoria 16:15:00 04:59:59 r Neurology 01 l [place] Ashvin 2018-08-30 2018-08-31 Outpatient nullFlavo MNA [id number] Memoria 16:15:00 04:59:59 r Neurology 01 l Zenaida Lock 2018-08-30 2018-08-30 [id number] 11:15:00 23:59:59 Joao Ethan Matias 2018-08-30 2018-08-30 Outpatient MHIE IE [id number] Memoria 11:15:00 11:15:00 01 abdullahi Lock 2018-07-19 2018-07-19 Outpatient MHIE MHIE [id number] Memoria 11:00:00 11:00:00 00 abdullahi Lock 2018-07-19 2018-07-19 Outpatient MHIE MHIE [id number] Memoria 11:00:00 11:00:00 00 abdullahi Lock Results This patient has no known results.
--- NOTE | 2023-07-17 12:27 | RAD REPORT ---
EXAM DESCRIPTION: RAD - Chest Pa And Lat (2 Views) - 07/17/2023 12:22 pm CLINICAL HISTORY: COUGH COMPARISON: Chest Pa And Lat (2 Views) dated 03/02/2018 FINDINGS: Lines: None. Lungs: No evidence of edema or pneumonia. Pleural: No significant pleural effusions or pneumothorax. Cardiac: The heart size is within normal limits. Mediastinum: Within normal limits. Bones: No acute fractures. Other: None IMPRESSION: No acute cardiopulmonary disease.
--- NOTE | 2023-07-17 12:38 | EDPHYS ---
Physician Documentation [facility] Name: Andreea Pugh Age: 72 yrs Sex: Female : 1950 Arrival Date: 07/17/2023 Time: 11:13 Bed IW3 Private MD: ED Physician Geremias Samano HPI: 07/17 11:30 This 72 yrs old Female presents to ER via Ambulatory with complaints of Cough/Flu aj3 Symptoms for a couple of months. 11:30 Patient reports that she has been having a productive cough, chest congestion and body aj3 aches and she cannot get rid of. She denies any chest pain, shortness of breath, fever, chills, runny nose, sore throat, ear pain, abdominal pain, nausea/vomiting/diarrhea.. Historical: - Allergies: 11:29 Codeine; ll1 11:29 PENICILLINS; ll1 11:29 Latex, Natural Rubber; ll1 - PMHx: 11:29 Hypertension; ll1 - PSHx: 11:29 None; ll1 - Immunization history:: Client reports having NOT received the Covid vaccine. - Social history:: Smoking status: Patient denies any tobacco usage or history of. ROS: 12:54 Cardiovascular: Negative for chest pain, palpitations, and edema, Abdomen/GI: Negative aj3 for abdominal pain, nausea, vomiting, diarrhea, and constipation, Skin: Negative for injury, rash, and discoloration, Neuro: Negative for syncope, headache, weakness, numbness, tingling, and seizure. 12:54 Constitutional: Positive for body aches, malaise, Negative for chills, fatigue, fever, poor PO intake, weight loss. 12:54 Respiratory: Positive for cough, shortness of breath, Negative for dyspnea on exertion, shortness of breath, wheezing. Exam: 12:54 Constitutional: This is a well developed, well nourished patient who is awake, alert, aj3 and in no acute distress. Head/Face: Normocephalic, atraumatic. ENT: Nares patent. No nasal discharge, no septal abnormalities noted. Tympanic membranes are normal and external auditory canals are clear. Oropharynx with no redness, swelling, or masses, exudates, or evidence of obstruction, uvula midline. Mucous membranes moist. Cardiovascular: Regular rate and rhythm with a normal S1 and S2. No gallops, murmurs, or rubs. Normal PMI, no JVD. No pulse deficits. Respiratory: Lungs have equal breath sounds bilaterally, clear to auscultation and percussion. No rales, rhonchi or wheezes noted. No increased work of breathing, no retractions or nasal flaring. Skin: Warm, dry with normal turgor. Normal color with no rashes, no lesions, and no evidence of cellulitis. MS/ Extremity: Pulses equal, no cyanosis. Neurovascular intact. Full, normal range of motion. Neuro: Awake and alert, GCS 15, oriented to person, place, time, and situation. Motor strength 5/5 in all extremities. Sensory grossly intact. Normal gait. Vital Signs: 11:30 BP 138 / 71; Pulse 62; Resp 17; Temp 97.4; Pulse Ox 97% on R/A; Pain 0/10; ll1 11:30 Pain Scale: Adult ll1 MDM: 11:31 Patient medically screened. aj3 11:45 Historians other than the Patient: Spouse/Significant Other: . aj3 12:30 Differential diagnosis: viral Infection, bacterial infection, URI, pneumonia. aj3 12:30 Data reviewed: vital signs, nurses notes. Test considered but Not performed: Labs: Labs aj3 not warranted today based on exam and vitals. Care significantly affected by the following chronic conditions: Hypertension. Counseling: I had a detailed discussion with the patient and/or guardian regarding the historical points, exam findings, and any diagnostic results supporting the discharge/admit diagnosis, lab results, radiology results, to return to the emergency department if symptoms worsen or persist or if there are any questions or concerns that arise at home. ED course: Patient viral panel negative and chest x-ray negative for obvious pneumonia. Given her symptoms, we will treat for possible community-acquired pneumonia with antibiotics. Patient verbalized understanding of plan and is agreeable. 07/17 11:38 Order name: COVID-19 SARS RT PCR; Complete Time: 12:27 aj3 07/17 11:38 Order name: Flu; Complete Time: 12:24 aj3 07/17 11:38 Order name: RSV; Complete Time: 12:24 aj3 07/17 11:38 Order name: XRAY Chest Pa And Lat (2 Views); Complete Time: 12:29 aj3 Administered Medications: No medications were administered Disposition Summary: 07/17/23 12:37 Discharge Ordered Location: Home aj3 Problem: new aj3 Symptoms: are unchanged aj3 Condition: Stable aj3 Diagnosis - Pneumonia, unspecified organism aj3 Followup: aj3 - With: Private Physician - When: - Reason: Recheck today's complaints, Re-evaluation by your physician Discharge Instructions: - Discharge Summary Sheet aj3 - Community-Acquired Pneumonia, Adult aj3 Forms: - Medication Reconciliation Form aj3 - Thank You Letter aj3 - Antibiotic Education aj3 - Prescription Opioid Use aj3 - Patient Portal Instructions aj3 - Leadership Thank You Letter aj3 Prescriptions: - azithromycin 250 mg Oral tablet - take 2 tablet by ORAL route per package directions for 5 days Take 2 tablets on aj3 day 1, then 1 tablet daily for the next 4 days; 6 tablet; Refills: 0, Product Selection Permitted - Tessalon Perles 100 mg Oral Capsule - take 1 capsule by ORAL route every 8 hours As needed; 15 capsule; Refills: 0, aj3 Product Selection Permitted Signatures: Dispatcher [employer] Shanna Blanton RN RN ll1 Anabel Stewart NP [employer] aj3 Corrections: (The following items were deleted from the chart) 12:59 12:54 Differential diagnosis: viral Infection, bacterial infection, URI, pneumonia aj3 aj3
--- NOTE | 2023-07-17 12:38 | ER ---
Nurse's Notes [facility] Name: Andreea Pugh Age: 72 yrs Sex: Female : 1950 Arrival Date: 07/17/2023 Time: 11:13 Bed IW3 Private MD: Diagnosis: Pneumonia, unspecified organism Presentation: 07/17 11:30 Chief complaint: Patient states: Cough, congestion, body aches for 3 months. ll1 Coronavirus screen: Vaccine status: Patient reports being unvaccinated. Client denies travel out of the [place] in the last 14 days. congestion, cough unrelated to allergies. Ebola Screen: Patient denies travel to an Ebola-affected area in the 21 days before illness onset. Initial Sepsis Screen: Does the patient meet any 2 criteria? No. Patient's initial sepsis screen is negative. Does the patient have a suspected source of infection? Yes: Productive cough/pneumonia. Risk Assessment: Do you want to hurt yourself or someone else? Patient reports no desire to harm self or others. Onset of symptoms was May 17, 2023. 11:30 Method Of Arrival: Ambulatory 1 11:30 Acuity: RAGHU 3 ll1 Triage Assessment: 11:32 General: Appears uncomfortable, Behavior is calm, cooperative, appropriate for age. ll1 General: Reports feeling ill for fatigue for. Pain: Denies pain. EENT: Reports nasal congestion. Respiratory: Reports cough that is. Historical: - Allergies: 11:29 Codeine; ll1 11:29 PENICILLINS; ll1 11:29 Latex, Natural Rubber; ll1 - PMHx: 11:29 Hypertension; ll1 - PSHx: 11:29 None; ll1 - Immunization history:: Client reports having NOT received the Covid vaccine. - Social history:: Smoking status: Patient denies any tobacco usage or history of. Screenin:55 [facility] ED Fall Risk Assessment (Adult) Impaired Gait Yes (1 pt) Score/Fall Risk Level ll1 0 - 2 = Low Risk Oriented to surroundings, Maintained a safe environment, Educated pt \T\ family on fall prevention, incl call for assistance when getting out of bed, Hourly rounding (assess needs \T\ fall precautionary measures) done. Abuse screen: Denies threats or abuse. Nutritional screening: No deficits noted. Tuberculosis screening: No symptoms or risk factors identified. Assessment: 12:55 Reassessment: No changes from previously documented assessment. Patient and/or family ll1 updated on plan of care and expected duration. Pain level reassessed. Patient is alert, oriented x 3, equal unlabored respirations, skin warm/dry/pink. Vital Signs: 11:30 BP 138 / 71; Pulse 62; Resp 17; Temp 97.4; Pulse Ox 97% on R/A; Pain 0/10; ll1 11:30 Pain Scale: Adult ll1 ED Course: 11:17 Patient arrived in ED. rg4 11:22 Anabel Stewart NP is PHCP. aj3 11:22 Geremias Samano MD is Attending Physician. aj3 11:31 Triage completed. ll1 11:32 Arm band placed on. ll1 12:24 XRAY Chest Pa And Lat (2 Views) In Process Unspecified. EDMS 12:55 Patient has correct armband on for positive identification. Bed in low position. ll1 Provided Education on: n/a. 12:55 No provider procedures requiring assistance completed. Patient did not have IV access ll1 during this emergency room visit. Administered Medications: No medications were administered Medication: 12:55 VIS not applicable for this client. ll1 Outcome: 12:37 Discharge ordered by . aj3 12:55 Patient left the ED. ll1 12:55 Discharged to home ambulatory. ll1 12:55 Condition: stable 12:55 Discharge instructions given to patient, Instructed on discharge instructions, follow up and referral plans. medication usage, Demonstrated understanding of instructions, follow-up care, medications, Prescriptions given X 2. Signatures: Dispatcher [employer] [facility] Angelique Garcia rg4 Shanna Song, RN RN ll1 Anabel Stewart NP DEEP SE[employer] DIVER aj3
[2023-07-17 12:59] VITALS: BP 138/71; TEMP 97.4; O2SAT 97
== END 2023-07-17 12:55 | disposition home or self-care (01) ==
LOC: ER 11:13
DX: J18.9 Pneumonia, unspecified organism (principal); Z20.822 Contact with and (suspected) exposure to COVID-19; I10 Essential (primary) hypertension; Z88.0 Allergy status to penicillin; Z88.5 Allergy status to narcotic agent; Z91.040 Latex allergy status; Z91.048 Other nonmedicinal substance allergy status
CPT/HCPCS: 71046; 87635; 87804; 87807; 99283

== ENCOUNTER 2024-04-09 17:09 | Emergency (ER) | payer OTHER ==
--- OUTSIDE RECORDS SUMMARY | 2024-04-09 17:15 | XMS REPORT | Continuity of Care Document ---
Author Name Unknown Address [address] [place] [address] [place] [address] thconnect Address [address] [place] [address] 1 [address] [place] [address] Care Team Providers Care Residential Care Facility Manager Name Role Phone BREANNA MARQUEZ Attending Clinician Unavailable LAB90 Attending Clinician Unavailable TIFFANY EVERETT Attending Clinician Unavailable MICHELLE MARY Attending Clinician Unavailable YOBANY CANO Attending Clinician UnavailKRISTAN Gilbert Attending Clinician Unavailable SAMANTHA KEENAN Attending Clinician Unavailable REFUGIO MUÑOZ Attending Clinician UnavailKAREEM Mccauley Attending Clinician Unavailable MORGAN JACQUES Attending Clinician UnavailCORINNA Brewer Attending Clinician UnaLAI Monk Attending Clinician Unavail able HIGINIO_Syed Attending Clinician Unavailable HIGINIO_Syed Admitting Clinician Unavailable Payers Payer Name Policy Type Policy Number Effective Date Expirati on Date Source [facility] [id number] 2023 00:00:00 [facility] (MEDICARE REPLACEMENT/ADVANT AGE - HMO) [id number] 2019 00:00:00 Problems Condition Name Condition Details Condition Category Status Onset Date Resolution Date Last Treatment Date Treating Clinician Comments Source Class 1 obesity due to excess calories with serious comorbidit y and body mass index (BMI) of 32.0 to 32.9 in adult Class 1 obesity due to excess calories with serious comorbidit y and body mass index (BMI) of 32.0 to 32.9 in adult Disease Active 08-15 00:00: 00 Deya fernando Left hip pain Left hip pain Disease Active 08-15 00:00: 00 Deya fernando Well adult exam Well adult exam Disease Active 08-15 00:00: 00 Deya fernando Class 1 obesity due to excess calories with serious comorbidit y and body mass index (BMI) of 32.0 to 32.9 in adult Class 1 obesity due to excess calories with serious comorbidit y and body mass index (BMI) of 32.0 to 32.9 in adult Disease Active 08-15 00:00: 00 Deya fernando Alzheimer disease Alzheimer disease Disease Active 06-28 00:00: 00 Overview: Formattin g of this note might be different from the original. Care Everywher e Records, see Dr. Justina fernando Hiatal hernia with GERD Hiatal hernia with GERD Disease Active 06-28 00:00: 00 Deya fernando Headache (finding) Headache (finding) Active Problem 03/17/2024 [facility] Problem Active 2024-03-17 13:34:10 Angelita Lock Hypertensi ve disorder, systemic arterial (disorder) Hypertensi ve disorder, systemic arterial (disorder) Active Problem 03/17/2024 [facility] Problem Active 2024-03-17 13:34:10 Angelita Lock Memory impairment (finding) Memory impairment (finding) Active Problem 03/17/2024 [facility] Problem Active 2024-03-17 13:34:10 Angelita Lock Morbid obesity (disorder) Morbid obesity (disorder) Active Problem 03/17/2024 [facility] Problem Active 2024-03-17 13:34:10 Angelita Lock Trigeminal neuralgia (disorder) Trigeminal neuralgia (disorder) Active Problem 03/17/2024 [facility] Problem Active 2024-03-17 13:34:10 Angelita Lock Ataxia (finding) Ataxia (finding) Active Problem 03/17/2024 [facility] Problem Active 2024-03-17 13:34:10 Angelita Lock Hyperlipid emia (disorder) Hyperlipid emia (disorder) Active Problem 03/17/2024 [facility] Problem Active 2024-03-17 13:34:10 Javyoria abdullahi Lock Myoclonus (finding) Myoclonus (finding) Active Problem 03/17/2024 [facility] Problem Active 2024-03-17 13:34:10 Javyoria abdullahi Lock Impaired cognition (finding) Impaired cognition (finding) Active Problem 03/17/2024 [facility] Problem Active 2024-03-17 13:34:10 Javyoria abdullahi Lock Allergies, Adverse Reactions, Alerts Allergy Name Allergy Type Status Severity Reaction(s) Onset Date Inactive Date Treating Clinician Comments Source Penicill ins Propensi ty to adverse reaction s Active Rash 02-23 00:00: 00 Deya Driver - Externa l Codeine Propensi ty to adverse reaction s Active Other 07-03 00:00: 00 Other reaction( s): Unknown - See comments Deya Nevareza l Latex Propensi ty to adverse reaction s Active Rash 07-03 00:00: 00 Deya Nevareza l codeine sulfate codeine sulfate Active [facility] Latex Latex Active Javyoria abdullahi Lock penicill in penicill in Active Angelita Lock Social History Social Habit Start Date Stop Date Quantity Comments Source Gender identity Tierra Driver - External Sexual orientation Kai Driver - External History of tobacco use Cigarette Smoker Deya riley - External Alcohol intake 2023-10-13 00:00:00 2023-10-13 00:00:00 Ex-drinker (finding) Deya Driver - External History of Social function 2023-08-14 00:00:00 2023-08-14 00:00:00 Deya Driver - External Cigarettes smoked current (pack per day) - Reported 2023-06-28 00:00:00 2023-06-28 00:00:00 Deya Driver - External Cigarette pack-years 2023-06-28 00:00:00 2023-06-28 00:00:00 Deya Driver - External Tobacco use and exposure 2023-06-28 00:00:00 2023-06-28 00:00:00 Smokeless tobacco non-user Deya Driver - External Education - What is the highest level of school you have completed or the highest degree you have received? 2023-06-28 00:00:00 2023-06-28 00:00:00 Associate degree: academic program Deya Driver - [place] Alcohol Comment 2023-06-28 00:00:00 2023-06-28 00:00:00 quit heavy alcohol in 1982 Deya Driver - [place] Sex Assigned At 1950 00:00:00 1950 00:00:00 Deya Driver - External Smoking Status Start Date Stop Date Source Ex-smoker 2023-06-28 00:00:00 2023-06-28 00:00:00 Kai Driver - External Medications Ordered Medication Name Filled Medication Name Start Date Stop Date Current Medication? Ordering Clinician Indication Dosage Frequency Signature (SIG) Comments Components Source memantine 10 mg oral tablet 18 19:09: 00 Yes 10 mg = 1 tab, PO, BID, # 180 tab, 1 Refill(s) [facility] memantine 10 mg oral tablet - 17:55: 00 Yes 10 mg = 1 tab, PO, BID, # 180 tab, 1 Refill(s), Pharmacy: [facility] #[id number], 157.48, cm, 11/23/23 13:15:00 [employer], Height, 81.818, kg, 11/23/23 13:15:00 [employer], Weight Memoria abdullahi JohnsonAshvin Namenda 10 mg oral tablet 2022-11 19:32: 00 Yes 10 mg = 1 tab, PO, BID, # 180 tab, 1 Refill(s), Pharmacy: [facility] #[id number], 157.48, cm, 11/23/23 13:15:00 [employer], Height, 81.818, kg, 11/23/23 13:15:00 [employer], Weight Memoria abdullahi Lock Simethicone 80 MG oral Tablet 2022-11 1- 00:00: 00 Yes [id number] 1{tbl} Take 1 tablet by mouth 2 times daily. Deya fernando Loperamide HCl (IMODIUM A-D) 2 MG oral Tablet 2022-11 00:00: 00 Yes [id number] 2mg Q.25D Take 1 tablet (2 mg total) by mouth 4 times daily as needed for diarrhea. Deya fernando Duloxetine HCl [address] Particles 2022-11 00:00: 00 Yes 60mg Take 1 capsule (60 mg total) by mouth daily. Deya fernando Amlodipine Besylate (Norvasc) 10 MG oral Tablet 2022-11 00:00: 00 Yes 10mg Take 1 tablet (10 mg total) by mouth daily. Deya fernando Atorvastati n Calcium (Lipitor) 10 MG oral Tablet 08-25 00:00: 00 Yes [id number] 10mg Take 1 tablet (10 mg total) by mouth nightly. Deya fernando donepezil 10 mg oral tablet 08-24 17:03: 00 Yes 10 mg = 1 tab, PO, Bedtime, # 90 tab, 2 Refill(s), Pharmacy: [facility] #[id number], 154.94, cm, 08/24/23 11:49:00 CDT, Height, 80.909, kg, 08/24/23 11:49:00 CDT, Weight Angelita Johnsonann Namenda 5 mg oral tablet 08-24 17:02: 00 Yes 5 mg = 1 tab, PO, BID, # 180 tab, 1 Refill(s), Pharmacy: [facility] #[id number], 154.94, cm, 08/24/23 11:49:00 CDT, Height, 80.909, kg, 08/24/23 11:49:00 CDT, Weight Angelita Lock Memantine HCl 5 MG oral Tablet 08-24 00:00: 00 Yes 5mg Take 1 tablet (5 mg total) by mouth 2 times daily. Deya fernando Famotidine 40 MG oral Tablet 08-21 00:00: 00 Yes Deya fernando Atorvastati n Calcium 20 MG oral Tablet 08-16 00:00: 00 Yes Deya fernando Atorvastati n Calcium 20 MG oral Tablet 08-15 13:58: 53 08-15 00:00 :00 No 20mg Take 1 tablet (20 mg total) by mouth daily. Deya fernando Omeprazole 20 MG oral Tablet Delayed Release Dispersible 08-15 13:58: 40 08-15 00:00 :00 No 1{capsu le} Take 1 capsule by mouth daily. Deya fernando donepezil 10 mg oral tablet 07-26 22:46: 00 Yes 10 mg = 1 tab, PO, Bedtime, # 30 tab, 3 Refill(s), Pharmacy: [id number], 154.94, cm, 05/09/23 15:21:00 CDT, Height, 81.818, kg, 05/09/23 15:21:00 CDT, Weight Angelita fernando [facility] Omeprazole 40 MG oral Delayed Release Capsule 07-24 00:00: 00 Yes Deya fernando Atorvastati n Calcium 20 MG oral Tablet 07-21 08:11: 33 Yes 20mg Take 1 tablet (20 mg total) by mouth daily. Deya fernando Omeprazole 20 MG oral Tablet Delayed Release Dispersible 07-21 08:11: 33 Yes 1{capsu le} Take 1 capsule by mouth daily. Deya fernando Pseudoeph-B romphen-DM 30-2-10 MG/5ML oral Syrup 07-21 00:00: 00 Yes [id number] 10mL Q.25D Take 10 mL by mouth 4 times daily as needed. Deya fernando diphenhydrA MINE HCl (BENADRYL ALLERGY OR) 06-28 11:41: 13 06-28 00:00 :00 No Take by mouth Deya fernando Omeprazole 40 MG oral Delayed Release Capsule 06-28 11:40: 50 06-28 00:00 :00 No 40mg Take 1 capsule (40 mg total) by mouth 2 times daily Deya fernando Pantoprazol e Sodium 20 MG oral Tablet Delayed Response 06-28 11:40: 44 06-28 00:00 :00 No 20mg Take 1 tablet (20 mg total) by mouth daily Deya fernando Benzonatate (Tessalon Perles) 100 MG oral Capsule 06-28 00:00: 00 Yes [id number] 100mg Q.[id number] 3D Take 1 capsule (100 mg total) by mouth 3 times daily as needed for cough Deya fernando Azithromyci n 250 MG oral Tablet 06-28 00:00: 00 07-04 04:59 :00 No [id number] Take 2 tablets by mouth on day 1 then 1 tablet by mouth daily for 4 days thereafter . Deya fernando Atorvastati n Calcium 20 MG oral Tablet 06-27 14:12: 15 Yes 20mg Take 1 tablet (20 mg total) by mouth daily Deya fernando donepezil 10 mg oral tablet 05-09 20:37: 00 Yes 10 mg = 1 tab, PO, Bedtime, # 30 tab, 3 Refill(s), Pharmacy: [facility], 154.94, cm, 05/09/23 15:21:00 CDT, Height, 81.818, kg, 05/09/23 15:21:00 CDT, Weight Javyoria abdullahi Lock DONEPEZIL HYDROCHLORI DE 10 MG oral Tablet 05-09 00:00: 00 Yes 10mg Take 1 tablet (10 mg total) by mouth every night at bedtime. Deya fernando Aricept 5 mg oral tablet 03-09 20:50: 00 Yes 5 mg = 1 tab, PO, Bedtime, # 30 tab, 3 Refill(s), Pharmacy: [facility], 154.94, cm, 03/09/23 15:13:00 CDT, Height, 80.909, kg, 03/09/23 15:13:00 CDT, Weight [facility] atorvastati n 20 mg oral tablet 01-31 21:59: 00 Yes 20 mg = 1 tab, PO, Bedtime, # 90 tab, 1 Refill(s) Angelita Lock DULoxetine 60 mg oral delayed release capsule 01-31 21:59: 00 Yes 0 Refill(s) Angelita Lock amLODIPine 10 mg oral tablet 01-31 21:59: 00 Yes 10 mg = 1 tab, PO, Daily, # 30 tab, 0 Refill(s) Angelita Lock omeprazole 40 mg oral delayed release capsule 01-31 21:58: 00 Yes 40 mg = 1 cap, 0 Refill(s) Angelita Lock DULoxetine HCl 60 MG oral Capsule Delayed Release Sprinkle 01-31 00:00: 00 Yes 1{capsu le} Take 1 capsule by mouth daily. Deya fernando Amlodipine Besylate 10 MG oral Tablet 01-31 00:00: 00 08-15 00:00 :00 No 10mg Take 1 tablet (10 mg total) by mouth daily. Deya fernando Duloxetine HCl [address] Particles 01-31 00:00: 00 06-28 00:00 :00 No 62mg Take 62 mg by mouth daily Deya fernando Famotidine 40 MG oral Tablet 2021-11 00:00: 00 06-28 00:00 :00 No 40mg Take 1 tablet (40 mg total) by mouth nightly Deya fernando carBAMazepi ne 200 mg oral tablet 2017-11 15:29: 09 Yes 200 mg = 1 tab, PO, TID, # 270 tab, 2 Refill(s), Pharmacy: [facility] baclofen 10 mg oral tablet 2017-11 15:29: 00 Yes 10 mg = 1 tab, PO, Bedtime, # 90 tab, 3 Refill(s), [facility] Vital Signs Vital Name Observation Time Observation Value Comments S ource Body temperature 2023-10-13 16:10:00 36.61 Yahaira Deya Seybold - External Respiratory rate 2023-10-13 16:10:00 18 /min Deya Seybold - External Body height 2023-10-13 16:10:00 157.5 cm Tierra ey Seybold - External Body weight 2023-10-13 16:10:00 80.468 kg Tierra ey Seybold - External BMI 2023-10-13 16:10:00 32.45 kg/m2 Tierra ey Seybold - External Oxygen saturation in Arterial blood by Pulse oximetry 2023-10-13 16:10:00 96 /min Deya Seybo ld - External Systolic blood pressure 2023-10-13 16:10:00 140 mm[Hg] Deya Seybo ld - External Diastolic blood pressure 2023-10-13 16:10:00 86 mm[Hg] Deya Seybo ld - External Heart rate 2023-10-13 16:10:00 75 /min Kelse y Seybold - External Oxygen saturation in Arterial blood by Pulse oximetry 2023-08-15 18:48:00 99 /min Deya Seybo ld - External Systolic blood pressure 2023-08-15 18:48:00 150 mm[Hg] Deya Seybo ld - External Diastolic blood pressure 2023-08-15 18:48:00 77 mm[Hg] Deya Seybo ld - External Heart rate 2023-08-15 18:48:00 52 /min Kelse y Seybold - External Body temperature 2023-08-15 18:48:00 37.17 Yahaira Deya Seybold - External Respiratory rate 2023-08-15 18:48:00 20 /min Deya Seybold - External Body height 2023-08-15 18:48:00 157.5 cm Tierra ey Seybold - External Body weight 2023-08-15 18:48:00 81.647 kg Tierra ey Seybold - External BMI 2023-08-15 18:48:00 32.92 kg/m2 Tierra ey Seybold - External Systolic blood pressure 2023-07-21 13:06:00 150 mm[Hg] Deya Seybo ld - External Diastolic blood pressure 2023-07-21 13:06:00 88 mm[Hg] Deya Seybo ld - External Heart rate 2023-07-21 13:06:00 70 /min Kelse y Seybold - External Body temperature 2023-07-21 13:06:00 36.11 Yahaira Deya Seybold - External Respiratory rate 2023-07-21 13:06:00 15 /min Deya Malinybold - External Body height 2023-07-21 13:06:00 157.5 cm Tierra ey Seybold - External Body weight 2023-07-21 13:06:00 81.647 kg Tierra ey Seybold - External BMI 2023-07-21 13:06:00 32.92 kg/m2 Tierra ey Seybold - External Systolic blood pressure 2023-06-28 16:28:00 133 mm[Hg] Deya Malinybo ld - External Diastolic blood pressure 2023-06-28 16:28:00 80 mm[Hg] Deya Malinybo ld - External Heart rate 2023-06-28 16:28:00 55 /min Kelse y Seybold - External Body temperature 2023-06-28 16:28:00 36.33 Yahaira Deya Malinybold - External Respiratory rate 2023-06-28 16:28:00 15 /min Deya Malinybold - External Body height 2023-06-28 16:28:00 157.5 cm Tierra gonzalez Seybold - External Body weight 2023-06-28 16:28:00 82.101 kg Tierra gonzalez Seybold - External BMI 2023-06-28 16:28:00 33.11 kg/m2 Tierra gonzalez Seybold - External Oxygen saturation in Arterial blood by Pulse oximetry 2023-06-28 16:28:00 97 /min Deya Lestero ld - External Height 2024-03-14 18:43:00 5 [ft_i] [facility] Systolic (mm Hg) 2024-03-14 18:43:00 [facility] [place] Diastolic (mm Hg) 2024-03-14 18:43:00 [facility] Heart Rate 2024-03-14 18:43:00 [facility] Weight 2024-03-14 18:43:00 [facility] BMI Calculated 2024-03-14 18:43:00 [facility] Systolic (mm Hg) 2023-11-23 19:12:00 [facility] Diastolic (mm Hg) 2023-11-23 19:12:00 [facility] Heart Rate 2023-11-23 19:12:00 [facility] Height 2023-11-23 19:12:00 5 [ft_i] [facility] Weight 2023-11-23 19:12:00 [facility] BMI Calculated 2023-11-23 19:12:00 [facility] Systolic (mm Hg) 2023-08-24 16:46:00 [facility] Diastolic (mm Hg) 2023-08-24 16:46:00 [facility] Heart Rate 2023-08-24 16:46:00 [facility] Height 2023-08-24 16:46:00 5 [ft_i] [facility] Weight 2023-08-24 16:46:00 [facility] BMI Calculated 2023-08-24 16:46:00 [facility] Diastolic (mm Hg) 2023-03-09 19:56:00 [facility] Heart Rate 2023-03-09 19:56:00 [facility] Height 2023-03-09 19:56:00 5 [ft_i] [facility] Weight 2023-03-09 19:56:00 [facility] BMI Calculated 2023-03-09 19:56:00 [facility] Systolic (mm Hg) 2023-03-09 19:56:00 [facility] Systolic (mm Hg) 2023-01-31 21:15:00 [facility] Diastolic (mm Hg) 2023-01-31 21:15:00 [facility] Heart Rate 2023-01-31 21:15:00 [facility] Height 2023-01-31 21:15:00 5 [ft_i] [facility] Weight 2023-01-31 21:15:00 [facility] BMI Calculated 2023-01-31 21:15:00 [facility] Systolic (mm Hg) 2019-09-27 16:03:00 [facility] Diastolic (mm Hg) 2019-09-27 16:03:00 [facility] Heart Rate 2019-09-27 16:03:00 [facility] Respitory Rate 2019-09-27 16:03:00 [facility] Height 2019-09-27 16:03:00 157.48 cm [facility] Weight 2019-09-27 16:03:00 [facility] BMI Calculated 2019-09-27 16:03:00 [facility] Systolic (mm Hg) 2019-09-12 15:11:00 [facility] Diastolic (mm Hg) 2019-09-12 15:11:00 [facility] Heart Rate 2019-09-12 15:11:00 [facility] Respitory Rate 2019-09-12 15:11:00 [facility] Height 2019-09-12 15:11:00 157.48 cm [facility] Weight 2019-09-12 15:11:00 [facility] BMI Calculated 2019-09-12 15:11:00 [facility] BMI Calculated 2019-06-14 14:46:00 [facility] Weight 2019-06-14 14:46:00 [facility] Height 2019-06-14 14:46:00 157.48 cm [facility] Respitory Rate 2019-06-14 14:46:00 [facility] Heart Rate 2019-06-14 14:46:00 [facility] Systolic (mm Hg) 2019-06-14 14:46:00 [facility] Diastolic (mm Hg) 2019-06-14 14:46:00 [facility] Systolic (mm Hg) 2019-05-03 19:01:00 [facility] Diastolic (mm Hg) 2019-05-03 19:01:00 [facility] Weight 2018-11-02 16:43:00 [facility] BMI Calculated 2018-11-02 16:43:00 [facility] Height 2018-11-02 16:43:00 157.48 cm [facility] Heart Rate 2018-11-02 16:43:00 [facility] Systolic (mm Hg) 2018-11-02 16:43:00 [facility] Diastolic (mm Hg) 2018-11-02 16:43:00 [facility] Height 2018-09-21 14:59:00 157.48 cm [facility] Weight 2018-09-21 14:59:00 [facility] BMI Calculated 2018-09-21 14:59:00 [facility] Heart Rate 2018-09-21 14:59:00 [facility] Systolic (mm Hg) 2018-09-21 14:59:00 [facility] Diastolic (mm Hg) 2018-09-21 14:59:00 [facility] BMI Calculated 2018-08-30 16:17:00 [facility] Weight 2018-08-30 16:17:00 [facility] Height 2018-08-30 16:17:00 157.48 cm [facility] Heart Rate 2018-08-30 16:17:00 [facility] Systolic (mm Hg) 2018-08-30 16:17:00 [facility] Diastolic (mm Hg) 2018-08-30 16:17:00 [facility] Procedures Procedure Date / Time Performed Performing Clinicia n Source Bowel care<sup>1</sup> [facility] Encounters Start Date/Time End Date/Time Encounter Type Admission Type Attending [facility] Facility Care Department Encounter ID Source 2024-04-17 15:15:00 2024-04-17 15:15:00 Outpatient JIMMYBREANNA GRIJALVA [id number] Deya krissy 2024-04-05 13:35:00 2024-04-05 13:35:00 Outpatient LAB90 [id number] [facility]:00:00 2024-04-05 00:00:00 Outpatient TIFFANY EVERETT [id number] Deya krissy 2024-04-04 00:00:00 2024-04-04 00:00:00 Outpatient TIFFANY EVERETT [id number] Deya [facility] 2024-03-26 13:30:00 2024-03-26 13:30:00 [id number] [facility]24-03-[facility] 00:00:00 2024-03-19 00:00:00 Outpatient PREZAS, TIFFANY KARIMI DEYA [id number] Deya Seybold 2024-03-15 00:00:00 2024-03-15 00:00:00 Outpatient PREZAS, TIFFANY KARIMI DEYA [id number] Deya Seybold 2024-03-14 14:20:00 2024-03-14 14:20:00 Outpatient LABHerbie DEYA KARIMI [id number] Deya Seybold 2024-03-14 00:00:00 2024-03-14 00:00:00 Outpatient PREZAS, TIFFANY CARRILLODAPHNE KARIMI [id number] Deya Seybold 2024-02-28 15:00:00 2024-02-28 15:00:00 Outpatient YOBANY CANO [id number] Deya Seybold 2024-02-28 11:00:00 2024-02-28 11:00:00 Outpatient YOBANY CANO [id number] Deya Seybold 2024-02-25 00:00:00 2024-02-25 00:00:00 Outpatient PREZAS, TIFFANY DEYA KARIMI [id number] Deya Seybold 2024-02-02 00:00:00 2024-02-02 00:00:00 Outpatient PREZAS, TIFFANY DEYA KARIMI [id number] Deya Seybold 2023-12-29 15:00:00 2023-12-29 15:00:00 Outpatient KRISTAN LYNN [id number] Deya Seybold 2023-12-28 14:30:00 2023-12-28 14:30:00 Outpatient SHLOMOSAMANTHA ALTMAN [id number] Deya Seybold 2023-12-28 14:30:00 2023-12-28 14:30:00 Outpatient SHLOMOSAMANTHA ALTMAN [id number] Deya Seybold 2023-12-24 00:00:00 2023-12-24 00:00:00 Outpatient PREZAS, TIFFANY KARIMI [id number] Deya Seybold 2023-12-15 15:00:00 2023-12-15 15:00:00 Outpatient REFUGIO MUÑOZ DEYA KARIMI [id number] [facility] 2023-12-06 15:45:00 2023-12-06 15:45:00 Outpatient KAREEM FERREIRA DEYA KARIMI [id number] [facility] 2023-11-23 13:00:00 2023-11-23 13:00:00 Outpatient MHIE MHIE [id number] Memwilly Johnsonann 2023-11-06 12:20:00 2023-11-06 12:20:00 Outpatient LAB90 [facility] [id number] [facility]23-[facility] 00:00:00 2023-11-06 00:00:00 Outpatient TIFFANY EVERETT [id number] [facility] 2023-10-27 13:30:00 2023-10-27 13:30:00 Outpatient SAWYERMORGAN [id number] [facility] 2023-10-13 10:30:00 2023-10-13 10:30:00 Outpatient MORGAN JACQUES DEYA KARIMI [id number] [facility] 2023-10-11 11:30:00 2023-10-11 11:30:00 Outpatient MORGAN JACQUES DEYA KARIMI [id number] [facility] 2023-10-05 15:15:00 2023-10-05 15:15:00 Outpatient CORINNA GUY [id number] [facility] 2023-09-26 00:00:00 2023-09-26 00:00:00 Outpatient MINESH EVERETTAND DEYA KARIMI [id number] [facility] 2023-08-24 16:45:00 2023-08-25 04:59:59 Outpatient MHIE [facility] [id number] 16 Memw[facility] 2023-08-25 00:00:00 2023-08-25 00:00:00 Outpatient TIFFANY EVERETT [id number] [facility] 2023-08-24 12:15:00 2023-08-24 12:15:00 Outpatient LAB90 [facility] [id number] [facility] 2023-08-24 11:30:00 2023-08-24 11:30:00 Outpatient LAB90 DEYA [facility]ARIM[facility] [id number] [facility] 2023-08-24 00:00:00 2023-08-24 00:00:00 Outpatient PREZATIFFANY Lugo DEYA KARIMI [id number] Deya [facility] 2023-08-21 13:30:00 2023-08-21 13:30:00 Outpatient MORGAN JACQUES [facility] [id number] [facility] 2023-08-16 20:15:00 2023-08-16 20:15:00 Ambulatory Pre-Reg MHIE [facility] [place] [id number] Mem[facility] abdullahi [facility] 2023-08-15 13:45:00 2023-08-15 13:45:00 Outpatient PREZATIFFANY Lugo DEYA [facility] [id number] [facility] 2023-08-08 00:00:00 2023-08-08 00:00:00 Outpatient MORGAN JACQUES DE[facility] [id number] [facility] 2023-07-21 08:00:00 2023-07-21 08:00:00 Outpatient MORGAN JACQUES DEYA KARIMI [id number] Deya [facility] 2023-07-19 14:45:00 2023-07-19 14:45:00 Outpatient PREZASTIFFANY [facility] [id number] [facility] 2023-07-19 00:00:00 2023-07-19 00:00:00 Outpatient PREZASTIFFANY DEYA [facility]ARIM[facility] [id number] [facility] 2023-07-12 00:00:00 2023-07-12 00:00:00 Outpatient LAI GARCIA [id number] [facility] 2023-07-04 00:00:00 2023-07-04 00:00:00 Outpatient PREZAS, TIFFANY KARIIM [id number] [facility] 2023-07-03 00:00:00 2023-07-03 00:00:00 Outpatient PREZAS, TIFFANY KARIMI [id number] [facility] 2023-06-28 11:45:00 2023-06-28 11:45:00 Outpatient TIFFANY EVERETT [id number] Deya Driver 2023-06-13 10:45:00 2023-06-13 10:45:00 Outpatient TIFFANY EVERETT [id number] Deya Driver 2023-05-09 19:30:00 2023-05-09 19:30:00 Ambulatory Pre-Reg [facility] [place] [id number] Angelita fernando Ashvin 2023-05-09 14:45:00 2023-05-09 14:45:00 Outpatient [facility] [id number] Javywilly abdullahi Lock 2023-03-09 20:00:00 2023-03-10 04:59:59 Outpatient [facility] [place] [id number] Javywilly abdullahi Lock 2023-01-31 21:00:00 2023-02-01 05:59:59 Outpatient [facility] [place] [id number] Javywilly abdullahi Lock 2021-09-20 08:47:00 2021-09-20 08:47:00 Outpatient ERICKSON_R [facility] [id number] [facility] 2019-12-20 20:30:00 2019-12-20 20:30:00 Ambulatory Pre-Reg nullFlavo r [facility] [place] [id number] Angelita Lock 2019-10-31 17:00:00 2019-10-31 17:00:00 Ambulatory Pre-Reg nullFlavo r [facility] [place] [id number] Angelita Lock 2019-09-27 16:45:00 2019-09-28 04:59:59 Outpatient nullFlavo r [facility] [place] [id number] Angelita Lock 2019-09-12 15:00:00 2019-09-13 04:59:59 Outpatient nullFlavo r [facility] [place] [id number] Angelita Lock 2019-06-14 14:45:00 2019-06-15 04:59:59 Outpatient nullFlavo r [facility] [place] [id number] Angelita fernando Ashvin 2019-05-03 19:00:00 2019-05-04 04:59:59 Outpatient nullFlavo r [facility] [place] [id number] Angelita fernando Ashvin 2019-01-04 20:45:00 2019-01-04 20:45:00 Ambulatory Pre-Reg nullFlavo r [facility] [place] [id number] Javywilly fernando Ashvin 2018-12-04 20:42:00 2018-12-06 05:59:59 Outside Medical Records nullFlavo r [facility] [place] [id number] Angelita fernando Ashvin 2018-11-02 16:30:00 2018-11-03 05:59:59 Outpatient nullFlavo r [facility] [place] [id number] Angelita Lock 2018-09-21 15:00:00 2018-09-22 04:59:59 Outpatient nullFlavo r [facility] [place] [id number] Angelita Lock 2018-08-30 16:15:00 2018-08-31 04:59:59 Outpatient nullFlavo r [facility] [place] [id number] Angelita Lock 2018-07-19 11:00:00 2018-07-19 11:00:00 Outpatient LYNNEIE KARLENE [id number] Angelita Lock Notes Date/Time Note Provider Source 2023-07-21 08:11:36 [id number]:11:36Form atting of this note is different from the original.Chief Complaint Patient presents with Cough Cough with yellow phlegm, chest congestion. Patient went to [facility] ER on 07/17. Was diagnosed with community pneumonia and given Azithromycin and Tessalon Perles with [place] [id number]:12:20Nurs e [id number] [facility] [id number] Hurst MA [facility] [facility] [id number]:12:201. [id number] [id number] Edwige Flynn MA [facility]"
[2024-04-09] MEDS ORDERED: CEFTRIAXONE 1000 MG/VIAL ONE (18:04)
[2024-04-09] MEDS ORDERED: ONDANSETRON 4 MG/2 ML VIAL ONE (18:05)
[2024-04-09] MEDS ORDERED: FENTANYL CITR 100 MCG/2 ML ONE (18:05)
[2024-04-09] MEDS ORDERED: NA CHLORIDE 0.9% 1,000 ML ONE (18:06)
[2024-04-09] MEDS ORDERED: CIPROFLOXACIN 400mg IV 400 MG/200 ML BAG IV ONE (18:06)
[2024-04-09 18:34] LABS: Absolute Basophils 0.1 K/uL (0-0.5); Absolute Eosinophils 0.2 K/uL (0-0.5); Absolute Lymphocytes (CBC) 1.5 K/uL (0.7-4.9); Absolute Monocytes 0.7 K/uL (0.1-1.3); Absolute Neutrophil 5.3 K/uL (1.8-8.0); Basophils % 0.9 % (0-1.3); Eosinophils % 2.3 % (0-4.4); Hemoglobin 14.2 g/dL (12.0-15.0); Lymphocytes % 19.5 % (15.3-44.8); MCH 30.6 pg (27.0-35.0); MCHC 33.8 g/dL (32.0-36.0); MCV 90.5 fL (80-100); MPV 8.5 fL (7.6-11.3); Monocytes % 8.7 % (3.3-12.3); Neutrophils % 68.6 % (41.7-73.7); Nucleated Red Blood Cells % 0.2 % (0-0); Platelets 252 thou/uL (152-406); RBC Red Blood Cell Count 4.64 M/uL (3.86-4.86); Red Cell Distribution Width 14.7 % (12.1-15.2)
[2024-04-09 18:39] LABS: Specific Gravity > 1.030 (1.005-1.030); Urine Bacteria <20 /HPF (<20); Urine Bilirubin NEGATIVE (Negative); Urine Blood Negative (Negative); Urine Clarity Extremely Turbid (Clear); Urine Color Dark-Yellow (Yellow); Urine Culture Reflex Order REFLEXED; Urine Glucose NEGATIVE (Negative); Urine Ketones TRACE (Negative); Urine Microscopic Reflex YN ORDER UMIC; Urine Mucus 3+ /HPF (None Seen); Urine Nitrite NEGATIVE (Negative); Urine Protein 1+ (Negative); Urine Urobilinogen Normal (Normal); Urine pH 5.5 (5.0-7.0)
[2024-04-09 18:46] LABS: Albumin 3.8 g/dL (3.4-5.0); Albumin/Globulin Ratio 1.1 (1.1-1.8); Anion Gap 7.6 mEq/L (5.0-15.0); Bilirubin Total 0.5 mg/dL (0.2-1.0); Globulin 3.6 g/dL (2.3-3.5); Potassium 3.6 mEq/L (3.5-5.1); Protein, Total 7.4 g/dL (6.4-8.2)
--- NOTE | 2024-04-09 20:22 | RAD REPORT ---
EXAM DESCRIPTION: CTAbdomen Pelvis W Contrast - 04/09/2024 8:15 pm CLINICAL HISTORY: Abdominal pain. lower back pain, lower abdominl pain, urinary frequency COMPARISON: <Comparisons> TECHNIQUE: Biphasic CT imaging of the abdomen and pelvis was performed with 100 ml non-ionic IV cont rast. All CT scans are performed using dose optimization technique as appropriate and may include automated exposure control or mA/KV adjustment according to patient size. FINDINGS: The lung bases are clear.Cholecystectomy clips. The liver, spleen, pancreas, adrenal glands and kidneys are within normal limits. No bowel obstruction, free air, free fluid or abscess. Prominent sigmoid diverticulosis coli is seen without diverticulitis. The appendix is not identified as a discrete structure, however, no secondary findings of appendicitis are identified. No evidence of significant lymphadenopathy. Prominent L5-S1 spondylosis. IMPRESSION: No acute intra-abdominal or pelvic finding. Prominent sigmoid diverticulosis coli without diverticulitis.
--- NOTE | 2024-04-09 20:26 | EDPHYS ---
Physician Documentation [facility] Name: Andreea Pugh Age: 73 yrs Sex: Female : 1950 Arrival Date: 04/09/2024 Time: 17:09 Bed 6 Private MD: TATI Physician Geremias Samano HPI: 04/09 17:51 This 73 yrs old Female presents to ER via Ambulatory with complaints of heriberto Urinary Problem. 17:51 The patient presents with abdominal pain in the lower abdomen, abdominal distention in heriberto the upper abdomen, in the lower abdomen. Onset: The symptoms/episode began/occurred 3 day(s) ago. The patient complains of pain in the left low back, left mid back, right mid back and right low back. The pain does not radiate. Onset: The symptoms/episode began/occurred 3 day(s) ago. Modifying factors: The symptoms are alleviated by urinating, the symptoms are aggravated by movement. The patient presents with urinary symptoms, dysuria, frequency, hematuria, hesitancy, incontinence, urgency. Modifying factors: The symptoms are alleviated by nothing, remaining still, the symptoms are aggravated by pressure, urinating. Associated signs and symptoms: The patient has no apparent associated signs or symptoms. Severity of symptoms: At their worst the symptoms were moderate, in the emergency department the symptoms are unchanged. Historical: - Allergies: 17:29 Codeine; iw 17:29 Latex; iw 17:29 PENICILLINS; iw - PMHx: 17:29 Hypertension; Hypercholesterolemia; iw - Immunization history:: Adult Immunizations not up to date. - Infectious Disease History:: Denies. - Social history:: Smoking status: Patient/guardian denies using tobacco, but has a distant history of tobacco abuse. - Family history:: not pertinent. ROS: 17:51 Constitutional: Negative for fever, chills, and weight loss, Eyes: Negative for injury, heriberto pain, redness, and discharge, ENT: Negative for injury, pain, and discharge, Neck: Negative for injury, pain, and swelling, Cardiovascular: Negative for chest pain, palpitations, and edema, Respiratory: Negative for shortness of breath, cough, wheezing, and pleuritic chest pain, Back: Negative for injury and pain, MS/Extremity: Negative for injury and deformity, Skin: Negative for injury, rash, and discoloration, Neuro: Negative for headache, weakness, numbness, tingling, and seizure, Psych: Negative for depression, anxiety, suicide ideation, homicidal ideation, and hallucinations, Allergy/Immunology: Negative for hives, rash, and allergies, Endocrine: Negative for neck swelling, polydipsia, polyuria, polyphagia, and marked weight changes, Hematologic/Lymphatic: Negative for swollen nodes, abnormal bleeding, and unusual bruising, 17:51 Abdomen/GI: Positive for abdominal pain, of the suprapubic area, posterior aspect of right lateral abdomen and posterior aspect of left lateral abdomen, 17:51 : Positive for urinary symptoms, urinary frequency, hematuria, burning with urination, difficulty urinating, Exam: 17:57 Constitutional: This is a well developed, well nourished patient who is awake, alert, heriberto and in no acute distress. Head/Face: Normocephalic, atraumatic. Eyes: Pupils equal round and reactive to light, extra-ocular motions intact. Lids and lashes normal. Conjunctiva and sclera are non-icteric and not injected. Cornea within normal limits. Periorbital areas with no swelling, redness, or edema. ENT: Nares patent. No nasal discharge, no septal abnormalities noted. Tympanic membranes are normal and external auditory canals are clear. Oropharynx with no redness, swelling, or masses, exudates, or evidence of obstruction, uvula midline. Mucous membranes moist. Neck: Trachea midline, no thyromegaly or masses palpated, and no cervical lymphadenopathy. Supple, full range of motion without nuchal rigidity, or vertebral point tenderness. No Meningismus. Chest/axilla: Normal chest wall appearance and motion. Nontender with no deformity. No lesions are appreciated. Cardiovascular: Regular rate and rhythm with a normal S1 and S2. No gallops, murmurs, or rubs. Normal PMI, no JVD. No pulse deficits. Respiratory: Lungs have equal breath sounds bilaterally, clear to auscultation and percussion. No rales, rhonchi or wheezes noted. No increased work of breathing, no retractions or nasal flaring. Back: No spinal tenderness. No costovertebral tenderness. Full range of motion. Female : Normal external genitalia. Skin: Warm, dry with normal turgor. Normal color with no rashes, no lesions, and no evidence of cellulitis. MS/ Extremity: Pulses equal, no cyanosis. Neurovascular intact. Full, normal range of motion. Neuro: Awake and alert, GCS 15, oriented to person, place, time, and situation. Cranial nerves II-XII grossly intact. Motor strength 5/5 in all extremities. Sensory grossly intact. Cerebellar exam normal. Normal gait. Psych: Awake, alert, with orientation to person, place and time. Behavior, mood, and affect are within normal limits. 17:57 Abdomen/GI: Inspection: distension, Bowel sounds: normal, Palpation: mild abdominal tenderness, in the suprapubic area, Liver: no appreciated palpable abnormalities, Hernia: not appreciated, 17:57 Musculoskeletal/extremity: Circulation is intact in all extremities. Sensation intact. Compartment Syndrome exam of affected extremity: is normal. Weight bearing: able to fully bear weight, without difficulty, DVT Exam: No signs of deep vein thrombosis. no pain, no swelling, no tenderness, negative Homans' sign noted on exam, no appreciated bluish discoloration, no erythema, no increased warmth, Vital Signs: 17:30 BP 148 / 66; Pulse 63; Resp 16; Pulse Ox 98% ; Weight 90.72 kg; Height 5 ft. 2 in. ; iw 19:00 BP 135 / 54; Pulse 61; Resp 17 S; Pulse Ox 100% on R/A; kc6 20:19 BP 166 / 101; Pulse 56; Resp 16; Pulse Ox 99% ; me1 17:30 Body Mass Index 36.58 (90.72 kg, 157.48 cm) iw MDM: 17:22 Patient medically screened. heriberto 17:58 Differential diagnosis: nephrolithiasis, pyelonephritis, UTI, diverticulitis, heriberto pancreatitis, Neoplasm nonspecific abdominal pain, ovarian cyst, urinary tract infection, bowel obstruction, diverticulitis, non-specific abd pain, pancreatitis, Peptic Ulcer Disease. Data reviewed: vital signs, nurses notes, lab test result(s), radiologic studies, CT scan. Consideration of Admission/Observation Patient was admitted/placed on observation. Escalation of care including admission/observation considered. I considered the following discharge prescriptions or medication management in the emergency department Medications were administered in the Emergency Department. See MAR. Independent interpretation of the following test(s) in the Emergency Department CT Scan: My interpretation is ct abd/pelvis. Test considered but Not performed: Ultrasound no abd usg. Historians other than the Patient: Spouse/Significant Other: well informed. Care significantly affected by the following chronic conditions: Hypertension, Obesity. Counseling: I had a detailed discussion with the patient and/or guardian regarding the historical points, exam findings, and any diagnostic results supporting the discharge/admit diagnosis, lab results, radiology results, the need for outpatient follow up, for definitive care, a family practitioner. 04/09 18:21 Order name: Comprehensive Metabolic Panel [facility] 04/09 18:21 Order name: Lipase [facility] 04/09 18:21 Order name: CBC with Automated Diff [facility] 04/09 18:21 Order name: Urinalysis w/ reflexes [facility] 04/09 18:41 Order name: Urinalysis w/ reflexes; Complete Time: 20:13 [facility] 04/09 18:44 Order name: Urine Culture [facility] 04/09 18:45 Order name: CBC with Automated Diff; Complete Time: 20:13 [facility] 04/09 18:46 Order name: Comprehensive Metabolic Panel; Complete Time: 20:13 [facility] 04/09 18:46 Order name: Lipase; Complete Time: 20:13 [facility] 04/09 17:32 Order name: CT Abd/Pelvis - IV Contrast Only [facility] 04/09 20:09 Order name: Abdomen [facility] 04/09 20:23 Order name: CT; Complete Time: 20:25 EDNJ Administered Medications: 18:10 Drug: NS 0.9% IV 1000 ml IV at 1 bolus Per protocol; 1000 mL bolus Route: IV; Rate: 1 kc6 bolus; Site: left antecubital; 20:41 Follow up: Response: No adverse reaction me1 18:16 Drug: Ciprofloxacin IVPB 400 mg 200 ml IVPB once over 60 mins Volume: 200 ml; Route: me1 IVPB; Infused Over: 60 mins; Site: left antecubital; 19:23 Follow up: Response: No adverse reaction; IV Status: Completed infusion me1 18:17 Drug: Rocephin IV 1 grams IV at bolus once; Given slow IV push per pharmacy me1 instructions Route: IV; Rate: bolus; Site: left antecubital; 19:01 Follow up: Response: No adverse reaction; IV Status: Completed infusion; IV Intake: [id number] 18:17 Drug: fentaNYL (PF) IVP 50 mcg IVP once Route: IVP; Site: left antecubital; me1 19:01 Follow up: Response: No adverse reaction; Pain is decreased; RASS: Alert and Calm (0) kc6 18:17 Drug: Ondansetron IVP 4 mg IVP once; over 2 minutes Route: IVP; Site: left antecubital; me1 19:01 Follow up: Response: No adverse reaction kc6 20:30 Drug: Trimethoprim-Sulfamethoxazole PO (160 mg-800 mg (DS) 1 tablet PO once Route: PO; me1 20:39 Follow up: Response: No adverse reaction me1 20:30 Drug: Phenazopyridine PO 200 mg PO once Route: PO; me1 20:39 Follow up: Response: No adverse reaction me1 Disposition Summary: 04/09/24 20:26 Discharge Ordered Notes: Location: Home heriberto Problem: new heriberto Symptoms: have improved heriberto Condition: Fair heriberto Diagnosis - Dysuria heriberto - UTI/ Urinary tract infection, site not specified heriberto - Unspecified kidney failure heriberto - Essential (primary) hypertension heriberto Followup: heriberto - With: Private Physician - When: 2 - 3 days - Reason: Recheck today's complaints, Continuance of care, Re-evaluation by your physician Discharge Instructions: - Discharge Summary Sheet heriberto - Abdominal Pain, Adult heriberto - Dysuria heriberto - Hypertension, Adult heriberto - Urinary Tract Infection, Adult heriberto - Urinary Tract Infection, Adult, Cbth-xn-Somt heriberto - Hypertension, Adult, Mvdw-hx-Ihuh heriberto - How to Take Your Blood Pressure, Ndrr-gk-Oxij heriberto - Managing Your Hypertension [facility] Forms: - Medication Reconciliation Form [facility] - Antibiotic Education heriberto - Prescription Opioid Use heriberto - Patient Portal Instructions [facility] - Leadership Thank You Letter [facility] Prescriptions: - Pyridium 200 mg Oral Tablet - take 1 tablet ORAL route every 8 hours for 3 days; 9 tablet; Refills: 0, [facility] Product Selection Permitted - Cipro 500 mg Oral Tablet - take 1 tablet ORAL route every 12 hours for 7 days; 14 tablet; Refills: 0, [facility] Product Selection Permitted - Bactrim DS 800-160 mg Oral tablet - take 1 tablet ORAL route every 12 hours for 5 days; 10 tablet; Refills: 0, [facility] Product Selection Permitted Signatures: Dispatcher [employer] Geremias Bryant MD MD cha Williams, Irene, RN RN Gisele Gordon RN RN kc6 Eddleman, Melodie, RN RN me1 Corrections: (The following items were deleted from the chart) 17:33 17:33 CBC+H.LAB.BRZ ordered. EDMS EDMS 17:33 17:33 COMPREHENSIVE METABOLIC PANEL+C.LAB.BRZ ordered. EDMS EDMS 17:33 17:33 Urinalysis+U.LAB.BRZ ordered. EDMS EDMS 17:33 17:33 LIPASE+C.LAB.BRZ ordered. EDMS EDMS 19:57 19:29 Abdomen ordered. EDMS EDMS
--- NOTE | 2024-04-09 20:26 | ER ---
Nurse's Notes [facility] Name: Andreea Pugh Age: 73 yrs Sex: Female : 1950 Arrival Date: 04/09/2024 Time: 17:09 Bed 6 Private MD: Diagnosis: Dysuria;UTI/ Urinary tract infection, site not specified;Unspecified kidney failure;Essential (primary) hypertension Presentation: 04/09 17:28 Chief complaint: Patient states: urine frequency and burning since last week, also iw having back pain. Coronavirus screen: At this time, the client does not indicate any symptoms associated with coronavirus-19. Ebola Screen: Patient negative for fever greater than or equal to 101.5 degrees Fahrenheit, and additional compatible Ebola Virus Disease symptoms Patient denies exposure to infectious person. Patient denies travel to an Ebola-affected area in the 21 days before illness onset. No symptoms or risks identified at this time. 17:28 Acuity: RAGHU 3 iw 17:28 Method Of Arrival: Ambulatory iw 18:10 Initial Sepsis Screen: Does the patient meet any 2 criteria? No. Patient's initial kc6 sepsis screen is negative. Does the patient have a suspected source of infection? No. Patient's initial sepsis screen is negative. Risk Assessment: Do you want to hurt yourself or someone else? Patient reports no desire to harm self or others. Onset of symptoms was April 09, 2024. Historical: - Allergies: 17:29 Codeine; iw 17:29 Latex; iw 17:29 PENICILLINS; iw - PMHx: 17:29 Hypertension; Hypercholesterolemia; iw - Immunization history:: Adult Immunizations not up to date. - Infectious Disease History:: Denies. - Social history:: Smoking status: Patient/guardian denies using tobacco, but has a distant history of tobacco abuse. - Family history:: not pertinent. Screenin:10 [facility] ED Fall Risk Assessment (Adult) History of falling in the last 3 months, kc6 including since admission No falls in past 3 months (0 pts) Confusion or Disorientation No (0 pts) Intoxicated or Sedated No (0 pts) Impaired Gait No (0 pts) Mobility Assist Device Used No (0 pt) Altered Elimination No (0 pt) Score/Fall Risk Level 0 - 2 = Low Risk. Abuse screen: Denies threats or abuse. Denies injuries from another. Nutritional screening: No deficits noted. Tuberculosis screening: No symptoms or risk factors identified. Assessment: 18:10 General: Appears in no apparent distress. comfortable, well groomed, well developed, kc6 Behavior is calm, cooperative, appropriate for age. Pain: Complains of pain in back and abdomen. Neuro: Level of Consciousness is awake, alert, obeys commands, Oriented to person, place, time, situation, Appropriate for age. Cardiovascular: Capillary refill < 3 seconds. Respiratory: Airway is patent Trachea midline Respiratory effort is even, unlabored, Respiratory pattern is regular, symmetrical. GI: No signs and/or symptoms were reported involving the gastrointestinal system. : Urine is clear, Reports burning with urination, pain in suprapubic area in lower back with urination, urinary frequency. EENT: No signs and/or symptoms were reported regarding the EENT system. Derm: No signs and/or symptoms reported regarding the dermatologic system. Skin is intact, is healthy with good turgor, Skin is pink, warm \T\ dry. Musculoskeletal: No signs and/or symptoms reported regarding the musculoskeletal system. Circulation, motion, and sensation intact. Capillary refill < 3 seconds, Range of motion: intact in all extremities. 19:55 General: CT here to get patient for CT with contrast. Patient removed her IV and states me1 she is ready to go home. Informed Dr Samano that patient is refusing another CT. 19:58 General: Patient agreed to have another IV started and to get the CT. Dr Samano me1 aware. . Vital Signs: 17:30 BP 148 / 66; Pulse 63; Resp 16; Pulse Ox 98% ; Weight 90.72 kg; Height 5 ft. 2 in. ; iw 19:00 BP 135 / 54; Pulse 61; Resp 17 S; Pulse Ox 100% on R/A; kc6 20:19 BP 166 / 101; Pulse 56; Resp 16; Pulse Ox 99% ; me1 17:30 Body Mass Index 36.58 (90.72 kg, 157.48 cm) iw ED Course: 17:21 Patient arrived in ED. ko1 17:21 Geremias Samano MD is Attending Physician. heriberto 17:29 Triage completed. iw 17:30 Arm band placed on. iw 17:55 Gisele Gordon, JANETH is Primary Nurse. kc6 18:10 Patient has correct armband on for positive identification. Bed in low position. Call kc6 light in reach. Side rails up X 1. Adult w/ patient. Client placed on continuous cardiac and pulse oximetry monitoring. NIBP monitoring applied. 18:10 Inserted saline lock: 20 gauge in left antecubital area, using aseptic technique. Blood kc6 collected. 19:00 Report given to JANETH Ryan. kc6 19:55 IV discontinued, intact, bleeding controlled, No redness/swelling at site. Pressure me1 dressing applied. 20:03 Inserted saline lock: 22 gauge in left antecubital area, using aseptic technique. me1 20:17 Abdomen In Process Unspecified. EDMS 20:39 No provider procedures requiring assistance completed. me1 20:39 IV discontinued, intact, bleeding controlled, No redness/swelling at site. Pressure me1 dressing applied. 20:40 Provided Education on: POC. Verbalized understanding. . me1 Administered Medications: 18:10 Drug: NS 0.9% IV 1000 ml IV at 1 bolus Per protocol; 1000 mL bolus Route: IV; Rate: 1 kc6 bolus; Site: left antecubital; 20:41 Follow up: Response: No adverse reaction hi1 18:16 Drug: Ciprofloxacin IVPB 400 mg 200 ml IVPB once over 60 mins Volume: 200 ml; Route: me1 IVPB; Infused Over: 60 mins; Site: left antecubital; 19:23 Follow up: Response: No adverse reaction; IV Status: Completed infusion hi1 18:17 Drug: Rocephin IV 1 grams IV at bolus once; Given slow IV push per pharmacy hi1 instructions Route: IV; Rate: bolus; Site: left antecubital; 19:01 Follow up: Response: No adverse reaction; IV Status: Completed infusion; IV Intake: [id number] 18:17 Drug: fentaNYL (PF) IVP 50 mcg IVP once Route: IVP; Site: left antecubital; me1 19:01 Follow up: Response: No adverse reaction; Pain is decreased; RASS: Alert and Calm (0) 6 18:17 Drug: Ondansetron IVP 4 mg IVP once; over 2 minutes Route: IVP; Site: left antecubital; me1 19:01 Follow up: Response: No adverse reaction 6 20:30 Drug: Trimethoprim-Sulfamethoxazole PO (160 mg-800 mg (DS) 1 tablet PO once Route: PO; me1 20:39 Follow up: Response: No adverse reaction me1 20:30 Drug: Phenazopyridine PO 200 mg PO once Route: PO; me1 20:39 Follow up: Response: No adverse reaction me1 Medication: 20:40 VIS not applicable for this client. me1 Intake: 19:01 IV: 50ml; Total: 50ml. kc6 Outcome: 20:26 Discharge ordered by MD. louis 20:40 Discharged to home ambulatory, with significant other, me1 20:40 Condition: stable 20:40 Discharge instructions given to patient, significant other, Instructed on discharge instructions, follow up and referral plans. medication usage, Demonstrated understanding of instructions, follow-up care, medications, Prescriptions given X 3, 20:40 Patient left the ED. me1 Signatures: Dispatcher [employer] EDGeremias Day MD MD cha Williams, Irene, RN RN iw Campbell, Kaitlyn, RN RN kc6 Andreea Helm RN RN ko1 Melodie Thakur RN RN me1
[2024-04-09] MEDS ORDERED: SMZ./TMP. 800/160 MG TABLET ONE (20:28)
[2024-04-09] MEDS ORDERED: PHENAZOPYRIDINE 100MG TAB PO ONE (20:29)
[2024-04-09 20:52] VITALS: BP 166/101; O2SAT 99
== END 2024-04-09 20:40 | disposition home or self-care (01) ==
LOC: ER 17:09
DX: N39.0 Urinary tract infection, site not specified (principal); N19 Unspecified kidney failure; I10 Essential (primary) hypertension; Z88.0 Allergy status to penicillin; Z88.5 Allergy status to narcotic agent; Z91.040 Latex allergy status
CPT/HCPCS: 96365; 87088; 85025; 81001; 87086; 36415; 83690; 80053; 74177; 96375; 99284; Q9967; J3010; J2405; J0744; J7030; J0696

== ENCOUNTER 2024-05-21 10:57 | Observation (INO) | payer OTHER ==
[2024-05-21] MEDS ORDERED: Meropenem 1000 MG/VIAL IV ONE (11:34)
[2024-05-21] MEDS ORDERED: NA CHLORIDE 0.9% 500 ML ONE (11:35)
[2024-05-21] MEDS ORDERED: NA CHLORIDE 0.9% 100 ML ONE (11:35)
[2024-05-21 12:15] LABS: Absolute Eosinophils 0.3 K/uL (0-0.5); Absolute Lymphocytes (CBC) 1.7 K/uL (0.7-4.9); Absolute Monocytes 0.4 K/uL (0.1-1.3); Basophils % 0.7 % (0-1.3); Eosinophils % 4.6 % (0-4.4); Hematocrit 39.5 % (36.0-45.0); MCH 30.8 pg (27.0-35.0); MCHC 32.9 g/dL (32.0-36.0); MCV 93.6 fL (80-100); MPV 8.4 fL (7.6-11.3); Monocytes % 6.4 % (3.3-12.3); Neutrophils % 61.3 % (41.7-73.7); Platelets 259 thou/uL (152-406); RBC Red Blood Cell Count 4.21 M/uL (3.86-4.86); Red Cell Distribution Width 15.3 % (12.1-15.2)
[2024-05-21 12:20] LABS: Sqamous Epithelial <5 /HPF (None Seen); Urine Bacteria <20 /HPF (<20); Urine Bilirubin NEGATIVE (Negative); Urine Blood Negative (Negative); Urine Clarity Extremely Turbid (Clear); Urine Color Light-Yellow (Yellow); Urine Culture Reflex Order REFLEXED; Urine Glucose NEGATIVE (Negative); Urine Ketones NEGATIVE (Negative); Urine Microscopic Reflex YN ORDER UMIC; Urine Nitrite NEGATIVE (Negative); Urine Protein NEGATIVE (Negative); Urine RBC <5 /HPF (None Seen); Urine Urobilinogen Normal (Normal); Urine WBC 20-50 /HPF (<5)
[2024-05-21 12:35] LABS: Albumin 3.5 g/dL (3.4-5.0); Albumin/Globulin Ratio 1.1 (1.1-1.8); Anion Gap 5.8 mEq/L (5.0-15.0); Bilirubin Total 0.3 mg/dL (0.2-1.0); Globulin 3.2 g/dL (2.3-3.5); Potassium 3.8 mEq/L (3.5-5.1); Protein, Total 6.7 g/dL (6.4-8.2)
--- NOTE | 2024-05-21 12:52 | RAD REPORT ---
EXAM DESCRIPTION: CT - [place] Protocol - 05/21/2024 12:05 pm CLINICAL HISTORY: FLANK PAIN COMPARISON: Abdomen Pelvis W Contrast dated 04/09/2024 TECHNIQUE: CT imaging of the abdomen and pelvis was performed without IV contrast. Multiplanar refor mats were generated and reviewed. All CT scans are performed using dose optimization technique as appropriate and may include automated exposure control or mA/KV adjustment according to patient size. FINDINGS: No suspicious findings in the lung bases. The liver, spleen and pancreas show no suspicious findings. Gallbladder was surgically removed. No hydronephrosis or suspicious renal mass. No significant adrenal finding. Isodense masses and pyel onephritis cannot be excluded in the absence of IV contrast. No dilated bowel loops or bowel wall thickening. Colonic diverticulosis distally. No free air, free f luid or inflammatory stranding. No hernia, mass or bulky lymphadenopathy. The urinary bladder is with out significant finding. No suspicious bony findings. IMPRESSION: Non-contrast enhanced CT abdomen and pelvis showing no significant or suspicious finding . Distal colonic diverticulosis. Status post cholecystectomy.
--- NOTE | 2024-05-21 13:36 | ER ---
Nurse's Notes [facility] Name: Andreea Pugh Age: 73 yrs Sex: Female : 1950 Arrival Date: 05/21/2024 Time: 10:57 Bed 7 Private MD: Blue Alamo Diagnosis: Abdominal tenderness;UTI/ Urinary tract infection, site not specified-ESBL;Dysuria Presentation: 05/21 11:11 Chief complaint: Patient states: "Dr. Keating told us to come to the ER because my urine mb9 sample has Ecoil. I've had burning with urination for weeks.". Coronavirus screen: At this time, the client does not indicate any symptoms associated with coronavirus-19. Ebola Screen: No symptoms or risks identified at this time. Initial Sepsis Screen: Does the patient meet any 2 criteria? No. Patient's initial sepsis screen is negative. Does the patient have a suspected source of infection? No. Patient's initial sepsis screen is negative. Risk Assessment: Do you want to hurt yourself or someone else? Patient reports no desire to harm self or others. Onset of symptoms was May 21, 2024. 11:11 Acuity: RAGHU 3 mb9 11:11 Method Of Arrival: Ambulatory mb9 Triage Assessment: 11:14 General: Appears in no apparent distress. Behavior is calm, cooperative. Pain: Denies mb9 pain. Neuro: Covarrubias Agitation-Sedation Scale (RASS): 0 - Alert and Calm Level of Consciousness is awake, alert, obeys commands, Oriented to person, place, time, situation, Appropriate for age. Cardiovascular: Patient's skin is warm and dry. Respiratory: Airway is patent Respiratory effort is even, unlabored, Respiratory pattern is regular, symmetrical. GI: No signs and/or symptoms were reported involving the gastrointestinal system. : Reports burning with urination. Derm: Skin is pink, warm \\T\\ dry. Musculoskeletal: Range of motion: intact in all extremities. Historical: - Allergies: 11:13 Codeine; mb9 11:13 Latex; mb9 11:13 PENICILLINS; mb9 - PMHx: 11:13 Hypercholesterolemia; Hypertension; mb9 - PSHx: 11:13 Cholecystectomy; Appendectomy; mb9 - Immunization history:: Adult Immunizations up to date. - Infectious Disease History:: Ecoil . - Social history:: Smoking status: Patient denies any tobacco usage or history of. Screenin:06 [facility] ED Fall Risk Assessment (Adult) History of falling in the last 3 months, ph including since admission No falls in past 3 months (0 pts) Confusion or Disorientation No (0 pts) Intoxicated or Sedated No (0 pts) Impaired Gait No (0 pts) Mobility Assist Device Used No (0 pt) Altered Elimination No (0 pt) Score/Fall Risk Level 0 - 2 = Low Risk Oriented to surroundings, Maintained a safe environment, Hourly rounding (assess needs \\T\\ fall precautionary measures) done. Abuse screen: Denies threats or abuse. Denies injuries from another. Nutritional screening: No deficits noted. Tuberculosis screening: No symptoms or risk factors identified. Assessment: 12:06 General: Appears in no apparent distress. comfortable, Behavior is calm, cooperative, ph appropriate for age. Pain: Denies pain. Neuro: Level of Consciousness is awake, alert, obeys commands, Oriented to person, place, time, situation. Cardiovascular: Capillary refill < 3 seconds in bilateral fingers. Respiratory: Airway is patent Respiratory effort is even, unlabored, Respiratory pattern is regular, symmetrical. GI: No signs and/or symptoms were reported involving the gastrointestinal system. : Reports burning with urination. Derm: Skin is pink, warm \\T\\ dry. Vital Signs: 11:11 BP 171 / 94; Pulse 69; Resp 18; Temp 98.1; Pulse Ox 98% on R/A; Weight 77.11 kg; Height mb9 5 ft. 2 in. ; 12:15 BP 158 / 87; Pulse 67; Resp 18; Pulse Ox 99% on R/A; ph 11:11 Body Mass Index 31.09 (77.11 kg, 157.48 cm) mb9 ED Course: 10:59 Patient arrived in ED. rg4 11:00 Blue Alamo DO is Private Physician. rg4 11:12 Geremias Samano MD is Attending Physician. heriberto 11:13 Triage completed. mb9 11:14 Arm band placed on. mb9 11:22 Patient placed in an exam room, on a stretcher. ll1 11:38 CT Stone Protocol In Process Unspecified. EDMS 11:54 Diane Lopez, RN is Primary Nurse. ph 12:05 Initial lab(s) drawn, by me, sent to lab. Urine collected: clean catch specimen. ph Inserted saline lock: 22 gauge in right antecubital area, using aseptic technique. Blood collected. 12:06 Patient has correct armband on for positive identification. Bed in low position. Call ph light in reach. Side rails up X 1. Pulse ox on. NIBP on. 13:35 Surekha Zimmer MD is Hospitalizing Provider. heriberto Administered Medications: 12:05 Drug: NS 0.9% IV 500 ml IV at bolus once Route: IV; Rate: bolus; Site: right antecubital; 13:00 Follow up: Response: No adverse reaction; IV Status: Completed infusion; IV Intake: ko1 500ml 12:05 Drug: Meropenem IV 1 grams IV at per protocol once; (mix in NS 100 mL) Route: IV; Rate: ph per protocol; Site: right antecubital; 13:05 Follow up: Response: No adverse reaction; IV Status: Completed infusion; IV Intake: ko1 100ml 14:13 Drug: Phenazopyridine PO 200 mg PO once Route: PO; ko1 15:00 Follow up: Response: No adverse reaction ko1 15:02 Drug: NS 0.9% IV 1000 ml IV at 125 ml/hr continuous Route: IV; Rate: 125 ml/hr; Site: ko right antecubital; 16:00 Follow up: Response: No adverse reaction; IV Status: Infusion continued upon admission ph Medication: 12:06 VIS not applicable for this client. ph Intake: 13:00 IV: 500ml; Total: 500ml. ko1 13:05 IV: 100ml; Total: 600ml. ko1 Outcome: 13:36 Decision to Hospitalize by Provider. [facility] 17:23 Patient left the ED. ph Signatures: Dispatcher [employer] EDGeremias Day MD MD cha Hall, Patricia, RN RN ph Garcia, Rubi rg4 Lewis, Lynsay, RN RN ll1 Andreea Helm RN RN ko1 Gladis Sandoval RN RN mb9
--- NOTE | 2024-05-21 13:37 | EDPHYS ---
Physician Documentation [facility] Name: Andreea Pugh Age: 73 yrs Sex: Female : 1950 Arrival Date: 05/21/2024 Time: 10:57 Bed 7 Private MD: Blue Alamo ED Physician Geremias Samano HPI: 05/21 13:29 This 73 yrs old Female presents to ER via Ambulatory with complaints of heriberto Urinary Problem. 13:29 The patient presents with flank pain, urinary symptoms, dysuria, frequency, urgency. heriberto Onset: The symptoms/episode began/occurred 5 day(s) ago. Modifying factors: The symptoms are alleviated by nothing, the symptoms are aggravated by urinating. Associated signs and symptoms: Pertinent positives: cramping, hematuria, urinary frequency. Severity of symptoms: At their worst the symptoms were moderate, in the emergency department the symptoms are unchanged. no fever no chills. The patient is not sexually active. Onset: The symptoms/episode began/occurred 5 day(s) ago. Severity of symptoms: At their worst the symptoms were moderate in the emergency department the symptoms are unchanged. The patient has experienced a previous episode, last month. Historical: - Allergies: 11:13 Codeine; mb9 11:13 Latex; mb9 11:13 PENICILLINS; mb9 - PMHx: 11:13 Hypercholesterolemia; Hypertension; mb9 - PSHx: 11:13 Cholecystectomy; Appendectomy; mb9 - Immunization history:: Adult Immunizations up to date. - Infectious Disease History:: Ecoil . - Social history:: Smoking status: Patient denies any tobacco usage or history of. ROS: 13:31 Constitutional: Negative for fever, chills, and weight loss, Eyes: Negative for injury, heriberto pain, redness, and discharge, ENT: Negative for injury, pain, and discharge, Neck: Negative for injury, pain, and swelling, Cardiovascular: Negative for chest pain, palpitations, and edema, Respiratory: Negative for shortness of breath, cough, wheezing, and pleuritic chest pain, Abdomen/GI: Negative for abdominal pain, nausea, vomiting, diarrhea, and constipation, Back: Negative for injury and pain, MS/Extremity: Negative for injury and deformity, Skin: Negative for injury, rash, and discoloration, Neuro: Negative for headache, weakness, numbness, tingling, and seizure, Psych: Negative for depression, anxiety, suicide ideation, homicidal ideation, and hallucinations, Allergy/Immunology: Negative for hives, rash, and allergies, Endocrine: Negative for neck swelling, polydipsia, polyuria, polyphagia, and marked weight changes, Hematologic/Lymphatic: Negative for swollen nodes, abnormal bleeding, and unusual bruising, 13:31 : Positive for urinary symptoms, pelvic pain, urinary frequency, small amounts, hematuria, burning with urination, difficulty urinating, Exam: 13:31 Constitutional: This is a well developed, well nourished patient who is awake, alert, heriberto and in no acute distress. Head/Face: Normocephalic, atraumatic. Eyes: Pupils equal round and reactive to light, extra-ocular motions intact. Lids and lashes normal. Conjunctiva and sclera are non-icteric and not injected. Cornea within normal limits. Periorbital areas with no swelling, redness, or edema. ENT: Nares patent. No nasal discharge, no septal abnormalities noted. Tympanic membranes are normal and external auditory canals are clear. Oropharynx with no redness, swelling, or masses, exudates, or evidence of obstruction, uvula midline. Mucous membranes moist. Neck: Trachea midline, no thyromegaly or masses palpated, and no cervical lymphadenopathy. Supple, full range of motion without nuchal rigidity, or vertebral point tenderness. No Meningismus. Chest/axilla: Normal chest wall appearance and motion. Nontender with no deformity. No lesions are appreciated. Cardiovascular: Regular rate and rhythm with a normal S1 and S2. No gallops, murmurs, or rubs. Normal PMI, no JVD. No pulse deficits. Respiratory: Lungs have equal breath sounds bilaterally, clear to auscultation and percussion. No rales, rhonchi or wheezes noted. No increased work of breathing, no retractions or nasal flaring. Back: No spinal tenderness. No costovertebral tenderness. Full range of motion. Female : Normal external genitalia. Skin: Warm, dry with normal turgor. Normal color with no rashes, no lesions, and no evidence of cellulitis. MS/ Extremity: Pulses equal, no cyanosis. Neurovascular intact. Full, normal range of motion. Neuro: Awake and alert, GCS 15, oriented to person, place, time, and situation. Cranial nerves II-XII grossly intact. Motor strength 5/5 in all extremities. Sensory grossly intact. Cerebellar exam normal. Normal gait. Psych: Awake, alert, with orientation to person, place and time. Behavior, mood, and affect are within normal limits. 13:31 Abdomen/GI: Inspection: abdomen appears normal, Bowel sounds: normal, Palpation: mild abdominal tenderness, moderate abdominal tenderness, in the suprapubic area, Liver: no appreciated palpable abnormalities, Hernia: not appreciated, Vital Signs: 11:11 BP 171 / 94; Pulse 69; Resp 18; Temp 98.1; Pulse Ox 98% on R/A; Weight 77.11 kg; Height mb9 5 ft. 2 in. ; 12:15 BP 158 / 87; Pulse 67; Resp 18; Pulse Ox 99% on R/A; ph 11:11 Body Mass Index 31.09 (77.11 kg, 157.48 cm) mb9 MDM: 11:12 Patient medically screened. [facility] 13:33 Differential diagnosis: kidney stone, malignancy, nonspecific abdominal pain, urinary heriberto tract infection. Differential Diagnosis altered mental status, sepsis, flu. Data reviewed: vital signs, nurses notes, lab test result(s), radiologic studies, CT scan. Consideration of Admission/Observation Patient was admitted/placed on observation. Escalation of care including admission/observation considered. I considered the following discharge prescriptions or medication management in the emergency department Medications were administered in the Emergency Department. See MAR. Independent interpretation of the following test(s) in the Emergency Department CT Scan: My interpretation is ct stone. Test considered but Not performed: Ultrasound no bilateral renal usg. Care significantly affected by the following chronic conditions: Hypertension, Obesity, esbl. 05/21 11:14 Order name: CBC with Diff; Complete Time: 13:[address] [facility] 05/21 11:14 Order name: Comprehensive Metabolic Panel; Complete Time: 13:[address] [facility] 05/21 11:14 Order name: Urinalysis w/ reflexes; Complete Time: 13:[address] [facility] 05/21 11:14 Order name: Urine Culture [facility] 05/21 14:45 Order name: Urinalysis w/ reflexes EDMS 05/21 11:14 Order name: CT Stone Protocol; Complete Time: 13:[address] [facility] Administered Medications: 12:05 Drug: NS 0.9% IV 500 ml IV at bolus once Route: IV; Rate: bolus; Site: right ph antecubital; 13:00 Follow up: Response: No adverse reaction; IV Status: Completed infusion; IV Intake: ko1 500ml 12:05 Drug: Meropenem IV 1 grams IV at per protocol once; (mix in NS 100 mL) Route: IV; Rate: ph per protocol; Site: right antecubital; 13:05 Follow up: Response: No adverse reaction; IV Status: Completed infusion; IV Intake: ko1 100ml 14:13 Drug: Phenazopyridine PO 200 mg PO once Route: PO; ko1 15:00 Follow up: Response: No adverse reaction ko1 15:02 Drug: NS 0.9% IV 1000 ml IV at 125 ml/hr continuous Route: IV; Rate: 125 ml/hr; Site: ko1 right antecubital; 16:00 Follow up: Response: No adverse reaction; IV Status: Infusion continued upon admission ph Disposition Summary: 05/21/24 13:36 Hospitalization Ordered Notes: Hospitalization Status: Inpatient Admission heriberto Provider: Surekha Zimmer cha [facility] heriberto Condition: Fair heriberto Problem: new heriberto Symptoms: have improved heriberto Bed/Room Type: Standard heriberto Room Assignment: 406(05/21/24 16:25) bd Diagnosis - Abdominal tenderness heriberto - UTI/ Urinary tract infection, site not specified - ESBL heriberto - Dysuria heriberto Forms: - Medication Reconciliation Form heriberto - SBAR form heriberto - Leadership Thank You Letter heriberto Signatures: Dispatcher [employer] EDCassidy Luo Corey, MD MD cha Hall, Patricia RN RN Andreea Trevino RN RN ko1 Gladis Sandoval RN RN mb9 Corrections: (The following items were deleted from the chart) 16: 13:36 heriberto bd
--- NOTE | 2024-05-21 13:54 | P.HP ---
Patient History Date of Service: 05/21/24 Allergies codeine Allergy (Unverified 08/01/17 21:23) Unknown Physical Examination - Studies Laboratory Data (last 24 hrs) 05/21/24 05/21/24 12:00 12:00 WBC 6.50 Hgb 13.0 Hct 39.5 Plt Count 259 Sodium 138 Potassium 3.8 BUN 19 H Creatinine 0.98 Glucose 105 Total Bilirubin 0.3 AST 11 L ALT 17 Alkaline Phosphatase 67 Assessment and Plan - Advance Directives Does patient have a Living Will: No Does patient have a Durable POA for Healthcare: No
[2024-05-21] MEDS ORDERED: PHENAZOPYRIDINE 100MG TAB PO ONE (14:12)
--- NOTE | 2024-05-21 14:32 | P.CNS ---
Date of Consult: 05/21/24 Ms Pugh is 73 year old female that presents for Evaluation for dysuria. She reports not following up after last ER evaluation and treatment for UTI. She reports several UTI over the last year. She does not remember the name of antibiotics, ER reports shows she was treated with Bactrim DS. She reports urinary frequency, mild dysuria, she denies hematuria. CT Evaluation does not show stone, or pyelonephritis.. UA shows mild leukoesterase elevation, 250, patient is tolerating p.o., no reported nausea vomiting abdominal pain. Patient can discharge home follow-up with PCP in 1 week to ensure UTI resolution, patient needs to follow-up with urology for recurrent UTIs. VS are stable, patient is tolerating po intake, able to discharge home on no antibiotic and Pyridium for dysuria.
--- NOTE | 2024-05-21 14:45 | P.HP ---
Certification for Inpatient Patient admitted to: Observation Patient will require the following post-hospital care: None Practitioner: I am a practitioner with admitting privileges, knowledge of patient current condition, hospital course, and medical plan of care. Services: Services provided to patient in accordance with Admission requirements found in Title 42 Section 412.3 of the Code of Federal Regulations Patient History Date of Service: 05/21/24 Reason for admission: dysuria History of Present Illness: 73 yrs old Female with past medical history of HTH presents to ER via Ambulatory with complaints of painful urination.She reports associaed frequency, urgency. She reports recent UTI, she was seen in ER and treated with bactim po. She reports symptoms started 5 days ago. reports mild positives: cramping. She denies hematuria. The patient has experienced a previous episode, last month.She denies fever, NVD, she is tolrerating po. plan to admit for UTI Allergies codeine Allergy (Unverified 08/01/17 21:23) Unknown Review of Systems per HPI Physical Examination - Physical Exam General: Alert, In no apparent distress, Oriented x3 HEENT: Atraumatic, Normocephalic Neck: Supple, 2+ carotid pulse no bruit Respiratory: Clear to auscultation bilaterally, Normal air movement Cardiovascular: Normal pulses, Regular rate/rhythm Capillary refill: <2 Seconds Gastrointestinal: Normal bowel sounds, Soft and benign Musculoskeletal: No clubbing, No swelling Integumentary: No significant lesion, No tenderness/swelling Neurological: Normal speech, Normal strength at 5/5 x4 extr - Studies Laboratory Data (last 24 hrs) 05/21/24 05/21/24 12:00 12:00 WBC 6.50 Hgb 13.0 Hct 39.5 Plt Count 259 Sodium 138 Potassium 3.8 BUN 19 H Creatinine 0.98 Glucose 105 Total Bilirubin 0.3 AST 11 L ALT 17 Alkaline Phosphatase 67 Assessment and Plan - Plan Assessment plan acute cystitis dysuria IVF, IV ABX. prn analgesics UA. urine culture. CT no hydronephrosis, no pyelnephritis HTN resume approp home meds full code cardiac diet dvt scd disposition home Discharge Plan: Home - Advance Directives Does patient have a Living Will: No Does patient have a Durable POA for Healthcare: No - Code Status/Comfort Care Code Status: Full Code Critical Care: No Time Spent Managing Pts Care (In Minutes): 55
[2024-05-21] MEDS ORDERED: NA CHLORIDE 0.9% 1,000 ML ONE (15:03)
[2024-05-21 17:45] VITALS: O2SAT 99; BMI 31.6
[2024-05-22] MEDS: Meropenem 500 MG in NA CHLORIDE 0.9% 100 ML IV SCH (00:45)
[2024-05-22] MEDS: ATORVASTATIN 10 MG TAB PO SCH (00:46)
[2024-05-22] MEDS: DONEPEZIL HCL 5 MG TAB PO SCH (00:46)
[2024-05-22] MEDS: MEMANTINE HCL 10 MG TABLET PO SCH (08:33)
[2024-05-22] MEDS: AMLODIPINE 10 MG TAB PO SCH (08:33)
[2024-05-22] MEDS: DULOXETINE 30 MG CAP PO SCH (08:34)
--- NOTE | 2024-05-22 09:47 | P.DS ---
Admission Date: 05/21/24 Discharge Date: 05/22/24 Disposition: DC HOME/HOME HEALTH CARE Discharge Condition: GOOD Reason for Admission: dysuria Brief History of Present Illness: 73 yrs old Female with past medical history of HTH presents to ER via Ambulatory with complaints of painful urination.She reports associaed frequency, urgency. She reports recent UTI, she was seen in ER and treated with bactim po. She reports symptoms started 5 days ago. reports mild positives: cramping. She denies hematuria. The patient has experienced a previous episode, last month.She denies fever, NVD, she is tolrerating po. plan to admit for UTI - Physical Exam General: Alert, In no apparent distress, Oriented x3 HEENT: Atraumatic, Normocephalic Neck: Supple, 2+ carotid pulse no bruit Respiratory: Clear to auscultation bilaterally, Normal air movement Cardiovascular: Normal pulses, Regular rate/rhythm Capillary refill: <2 Seconds Gastrointestinal: Normal bowel sounds, Soft and benign Musculoskeletal: No clubbing, No swelling Integumentary: No significant lesion, No tenderness/swelling Neurological: Normal speech, Normal strength at 5/5 x4 extr Hospital Course: 73 year-old patient presented with dysuria. Was noted to have UTI. Negative CT for pyelonephritis, no evidence of stone. Condition improved with IV fluids, IV antibiotics, as needed analgesics. Patient tolerating diet, stable for discharge to home with follow-up appointment with primary care physician. Patient will need to follow-up with urology after discharge for recurrent UTIs, discharged home with home health with IV antibiotic. PROBLEM: Acute cystitis discharged home with home health care with IV antibiotic ESBL of the urine treated with Invanz 1 g daily after discharge for 6 days Rad/Lab/Micro: UA positive for UTI leukoesterase 250 Continue home medicines as previously prescribed GOAL: Clear understanding of disease process INSTRUCTIONS: Physician Discharge Instructions: -Follow-up with PCP in 1 to 2 weeks -Please call Dr. Zimmer at [phone] if any questions regarding hospital stay -Please call nursing station at [phone] if any nursing or medication questions -Return to the emergency room if symptoms worsen Diet: ADA, low sodium Activity: Fall precautions Vital Signs/Physical Exam: Temp Pulse Resp BP Pulse Ox 97.1 F 57 20 137/69 97 05/22/24 08:00 05/22/24 08:33 05/22/24 08:00 05/22/24 08:33 05/22/24 08:00 Laboratory Data at Discharge: WBC 6.50 thou/uL (4.3-10.9) 05/21/24 12:00 Hgb 13.0 g/dL (12.0-15.0) 05/21/24 12:00 Hct 39.5 % (36.0-45.0) 05/21/24 12:00 Plt Count 259 thou/uL (152-406) 05/21/24 12:00 Sodium 138 mEq/L (136-145) 05/21/24 12:00 Potassium 3.8 mEq/L (3.5-5.1) 05/21/24 12:00 BUN 19 mg/dL (7-18) H 05/21/24 12:00 Creatinine 0.98 mg/dL (0.55-1.02) 05/21/24 12:00 Glucose 105 mg/dL (74-106) 05/21/24 12:00 Total Bilirubin 0.3 mg/dL (0.2-1.0) 05/21/24 12:00 AST 11 U/L (15-37) L 05/21/24 12:00 ALT 17 U/L (13-56) 05/21/24 12:00 Alkaline Phosphatase 67 U/L (45-117) 05/21/24 12:00 Home Medications: Amlodipine [Norvasc*] 10 mg PO DAILY 05/21/24 Atorvastatin Calcium 1 tab PO BEDTIME 05/21/24 Donepezil HCl [Aricept] 10 mg PO BEDTIME 05/21/24 Duloxetine [Cymbalta *] 60 mg PO DAILY 05/21/24 Memantine HCl [Namenda*] 10 mg PO BID 05/21/24 Physician Discharge Instructions: 73 year-old patient presented with dysuria. Was noted to have UTI. Negative CT for pyelonephritis, no evidence of stone. Condition improved with IV fluids, IV antibiotics, as needed analgesics. Patient tolerating diet, stable for discharge to home with follow-up appointment with primary care physician. Patient will need to follow-up with urology after discharge for recurrent UTIs, Discharge home HHC, IV ABX PROBLEM: Acute cystitis discharged home on IV ABX-Invanz 1g IVPB daily x 6 days; stop on 05/27/24, Follow-up with Dr. Yoo urology for dysuria, recurrent UTI Rad/Lab/Micro: UA positive for UTI leukoesterase 2 5 Continue home medicines as previously prescribed GOAL: Clear understanding of disease process INSTRUCTIONS: Physician Discharge Instructions: -Follow-up with PCP in 1 to 2 weeks -Please call Dr. Zimmer at [phone] if any questions regarding hospital stay -Please call nursing station at [phone] if any nursing or medication questi ons -Return to the emergency room if symptoms worsen Home IV antibiotics: [id number], [place], [place] [id number] P/ Joana: [phone] F Home Health: [facility] P:[phone] F:[phone] Diet: AHA Activity: Fall precautions Followup: Blue Alamo DO [Primary Care Provider] - Charli Yoo [ACTIVE - CAN ADMIT] - Time spent managing pt's care (in minutes): 55
[2024-05-22] MEDS: LIDOCAINE JELLY 2%- 5 ML TUBE TOP ONE (11:00)
[2024-05-22] MEDS: ALPRAZOLAM 0.5 MG TABLET PO ONE (13:44)
[2024-05-22] MEDS: ERTAPENEM SODIUM 1 GM VIAL IVPB ONE (14:28)
[2024-05-22] MEDS: ERTAPENEM NA 1 GM in NA CHLORIDE 0.9% 100 ML IVPB ONE (15:09)
[2024-05-22 16:19] VITALS: BP 148/77; TEMP 97.4
[2024-05-22] MEDS ORDERED: Mupirocin NASAL 2 APPL/1 GM TUBE NAS SCH (21:00)
== END 2024-05-22 17:38 | disposition home health service (06) ==
LOC: ER 10:57 → ERHOLD 14:40 → 4TH 17:43
PROVIDERS: ADMIT Hospitalist; ATTEND Hospitalist
DX: N30.00 Acute cystitis without hematuria (principal); R30.0 Dysuria; I10 Essential (primary) hypertension; E78.00 Pure hypercholesterolemia, unspecified; Z88.5 Allergy status to narcotic agent; Z88.0 Allergy status to penicillin; Z91.040 Latex allergy status
CPT/HCPCS: 96365; 96361; 87088; 85025; 81001; 87086; 36415; 80053; 76377; 74176; 99284; J1335; J7030; 87077; 87186; G0378; J2185; J7040

== ENCOUNTER 2025-07-03 09:09 | Day surgery (SDC) | payer OTHER ==
[2025-07-03] MEDS: Ringers Lactate 1,000 ML IV ONE (10:00)
[2025-07-03] MEDS ORDERED: LIDOCAINE 1% MPF 5 ML VIAL ONE (11:11)
[2025-07-03 13:12] VITALS: BP 141/70; TEMP 97; O2SAT 98
== END 2025-07-03 12:15 | disposition home or self-care (01) ==
LOC: OR 09:09
PROVIDERS: ATTEND Surgery
PROC: 0DB68ZX Excision of Stomach, Via Natural or Artificial Opening Endoscopic, Diagnostic (ICD-10-PCS; 2025-07-03)
PROC: 0DB48ZX Excision of Esophagogastric Junction, Via Natural or Artificial Opening Endoscopic, Diagnostic (ICD-10-PCS; 2025-07-03)
PROC: 0DB98ZX Excision of Duodenum, Via Natural or Artificial Opening Endoscopic, Diagnostic (ICD-10-PCS; principal; 2025-07-03 12:30)
DX: K21.9 Gastro-esophageal reflux disease without esophagitis (principal); R10.13 Epigastric pain; K29.81 Duodenitis with bleeding; K25.7 Chronic gastric ulcer without hemorrhage or perforation; K26.7 Chronic duodenal ulcer without hemorrhage or perforation; K29.30 Chronic superficial gastritis without bleeding; K44.9 Diaphragmatic hernia without obstruction or gangrene; K21.00 Gastro-esophageal reflux disease with esophagitis, without bleeding
CPT/HCPCS: 43239; 93005; 88312; 88305; J2704; J2003; J7120